=== PATIENT | female | born 1990 | race Caucasian/White ===

== ENCOUNTER 2017-06-11 17:56 | Inpatient (IN) ==
--- NOTE | 2017-06-11 18:44 | Emergency Department Note ---
Disposition Clinical Impression: Dehydration, Hyponatremia Pancreatitis Qualifiers: Chronicity: acute Pancreatitis type: other Acute pancreatitis complication: unspecified Qualified Code(s): K85.80 - Other acute pancreatitis without necrosis or infection Disposition: Admitted As Inpatient Condition: Fair Referrals: NONE,PCP [Primary Care Provider] - Forms: ED Satisfaction Letter, Work/School Release Time of Disposition: 20:57 Abdominal Pain HPI - General Chief Complaint: ED Abdominal Pain Stated Complaint: My back/Stomach hurt Time Seen by Provider: 06/11/17 18:18 Source: patient Nursing Notes Reviewed: Yes Vital Signs Reviewed: Yes - History of Present Illness HPI Narrative: She has generalized abdominal pain which started gradually 3 days ago and is constant and severe with radiation to the back. Has not had this pain in the past. She did use a Suboxone tablet one or 2 days ago. I did review her previous record with history of suicidality ideation, depression and substance abuse. She states the pain is constant and sharp and generalized. No fever, vomiting, diarrhea. She denies any blood in the urine or stool, dysuria or urinary frequency, vaginal bleeding or discharge. Social history: Smoker, no alcohol, no history of injection drug use. Is here with her boyfriend Pain Scale: 10 - Related Data Home Medications Medication Instructions Recorded Confirmed Abilify mg PO DAILY 06/11/17 Buspirone HCl [Buspar] 10 mg PO DAILY 06/11/17 06/11/17 HydrOXYzine Pamoate [Vistaril] 50 mg PO TID PRN 06/11/17 06/11/17 Venlafaxine HCl [Effexor Xr] 225 mg PO DAILY 06/11/17 06/11/17 Previous Rx's Medication Instructions Recorded TraZODone 50 mg PO HS PRN #30 tablet 11/06/15 Allergies Allergy/AdvReac Type Severity Reaction Status Date / Time diphenhydramine Allergy Hives Verified 11/03/15 18:23 [From Agnes] Review of Systems: As Per HPI Abdominal Pain PMH - Past Medical History Medical history: Reports: no medical history Female Surgical History: Reports: non-contributory CODER history: Reports: bilateral tubal ligation Psychiatric history: Reports: depression, previous psychiatric hospitalization - Social History Smoking status: Current every day smoker Alcohol use: Reports: occasionally Drug use: Reports: marijuana, prescription drug abuse Physical Exam CONSTITUTIONAL: Alert and oriented X3 although she does answer questions slowly and seems slightly lethargic, well-nourished, tired appearing, in no apparent distress HEAD: Normocephalic; atraumatic. EYES: PERRL, no scleral icterus. NOSE: The nose is normal in appearance without rhinorrhea RESP: Normal chest excursion with respiration; breath sounds clear and equal bilaterally; no wheezes, rhonchi, or rales CARD: Regular rhythm, without murmurs, rub or gallop ABD: Non-distended; moderate generalized discomfort palpation, normal appearance , the entire abdomen is soft,without rigidity, rebound or guarding SKIN: Normal for age and race; warm and dry; no apparent lesions - General Limitations: no limitations General appearance: alert, in no apparent distress Course Vital Signs Temperature 98.6 F 06/11/17 18:06 Pulse Rate 151 06/11/17 18:06 Respiratory Rate 18 06/11/17 18:06 Blood Pressure 119/87 06/11/17 18:06 O2 Sat by Pulse Oximetry 91 06/11/17 18:06 Temperature 98.6 F 06/11/17 18:06 Pulse Rate 116 06/11/17 20:59 Respiratory Rate 18 06/11/17 20:59 Blood Pressure 109/84 06/11/17 20:59 O2 Sat by Pulse Oximetry 98 06/11/17 20:59 Oxygen Delivery Oxygen Delivery Room Air Abdominal Pain - MDM Narrative Medical decision making narrative: Patient does have significant tachycardia will receive 2 L IV fluid bolus, labs including LFTs and lipase, urine toxicology screen, serum toxicology screen, abdominal pelvic CT scan with IV contrast. Results are pending. 1843 Case is discussed with the hospitalist who accepted the patient for admission. CT scan results are reviewed showing duodenitis or pancreatitis but with the elevated lipase and the patient's significant pain and pancreatitis more likely etiology. Patient did receive IV fluids. Is being admitted to the hospital. Urine does have many squamous cells and does seem to represent contaminant. 2054 Vital signs will be repeated, mild hyponatremia - Medical Records Medical records reviewed: Yes I reviewed the patient's medical records. - Lab Data Lab results reviewed: Yes I reviewed the patient's lab results. Result diagrams: 06/11/17 18:52 06/11/17 18:52 Lab Results 06/11/17 06/11/1718 Range/Units 18:52 18:52 18:52 WBC 18.3 H (4.3-11.1) K/mcL RBC 5.17 H (3.82-4.97) M/mcL Hgb 15.6 H (11.5-15.4) g/dL Hct 46.7 H (35.3-44.9) % MCV 90.3 (83.0-100.0) fL MCH 30.2 (28.0-33.3) pg MCHC 33.4 (31.6-35.5) g/dL RDW 13.4 (11.5-14.5) % Plt Count 428 H (140-400) K/mcL MPV 9.0 L (9.4-12.4) fL Sodium 128 L (136-145) mEq/L Potassium 4.0 (3.5-5.1) mEq/L Chloride 97 L (98-107) mEq/L Carbon Dioxide 25 (23-29) mEq/L BUN 15 (6-20) mg/dL Creatinine 0.67 (0.60-1.20) mg/dL Est GFR ( Amer) > 60 (> 60) Est GFR (Non-Af Amer) > 60 (> 60) BUN/Creatinine Ratio 22 (6-26) Glucose 118 H (70-105) mg/dL Calculated Osmolality 268 L (280-300) Lactic Acid (0.5-2.2) mmol/L Calcium 8.5 L (8.6-10.3) mg/dL Total Bilirubin 0.7 (0.3-1.0) mg/dL Direct Bilirubin 0.1 (0.0-0.2) mg/dL Indirect Bilirubin 0.6 (0.0-1.2) mg/dL AST 72 H (13-39) Units/L ALT 168 H (7-52) Units/L Alkaline Phosphatase 87 (34-104) Units/L Serum Total Protein 7.1 (6.4-8.9) g/dL Albumin 3.8 (3.5-5.7) g/dL Globulin 3.3 (2.4-3.5) g/dL Albumin/Globulin Ratio 1.2 (1.1-2.2) Lipase 424 H (11-82) Units/L Urine Color (Yellow) Urine Clarity (Clear) Urine pH (5.0-8.0) pH Units Ur Specific [place] (1.010-1.025) Urine Protein (Neg-Trace) mg/dL Urine Glucose (UA) (Normal) mg/dL Urine Ketones (Negative) mg/dL Urine Blood (Negative) Urine Nitrite (Negative) Urine Bilirubin (Negative) Urine Urobilinogen (Normal) mg/dL Ur Leukocyte Esterase (Negative) Urine Microscopic RBC (0-3) per hpf Urine Microscopic WBC (0-3) per hpf Ur Squamous Epith Cells (None-Few) per lpf Urine Bacteria (None-Few) per hpf Hyaline Casts (None-Few) per lpf Urine Test (Negative) Salicylates < 5.0 L (15.0-30.0) mg/dL Urine Opiates Screen (Fvrvfo=829) ng/mL Acetaminophen < 1.0 L (10-30) mcg/mL Ur Barbiturates Screen (Vgnpvx=050) ng/mL Ur Phencyclidine Scrn (Cutoff=25) ng/mL Ur Amphetamines Screen (Kvzrgz=3436) ng/mL U Benzodiazepines Scrn (Edjpzy=665) ng/mL Urine Cocaine Screen (Cutoff= 300) ng/mL U Marijuana (THC) Screen (Cutoff = 50) ng/mL Ethyl Alcohol < 10 (0-10) mg/dL 06/11/17 06/11/17 06/11/17 Range/Units 18:52 18:56 18:56 WBC (4.3-11.1) K/mcL RBC (3.82-4.97) M/mcL Hgb (11.5-15.4) g/dL Hct (35.3-44.9) % MCV (83.0-100.0) fL MCH (28.0-33.3) pg MCHC (31.6-35.5) g/dL RDW (11.5-14.5) % Plt Count (140-400) K/mcL MPV (9.4-12.4) fL Sodium (136-145) mEq/L Potassium (3.5-5.1) mEq/L Chloride (98-107) mEq/L Carbon Dioxide (23-29) mEq/L BUN (6-20) mg/dL Creatinine (0.60-1.20) mg/dL Est GFR ( Amer) (> 60) Est GFR (Non-Af Amer) (> 60) BUN/Creatinine Ratio (6-26) Glucose (70-105) mg/dL Calculated Osmolality (280-300) Lactic Acid 1.0 (0.5-2.2) mmol/L Calcium (8.6-10.3) mg/dL Total Bilirubin (0.3-1.0) mg/dL Direct Bilirubin (0.0-0.2) mg/dL Indirect Bilirubin (0.0-1.2) mg/dL AST (13-39) Units/L ALT (7-52) Units/L Alkaline Phosphatase (34-104) Units/L Serum Total Protein (6.4-8.9) g/dL Albumin (3.5-5.7) g/dL Globulin (2.4-3.5) g/dL Albumin/Globulin Ratio (1.1-2.2) Lipase (11-82) Units/L Urine Color Dark Yellow (Yellow) Urine Clarity Cloudy A (Clear) Urine pH 6.5 (5.0-8.0) pH Units Ur Specific [place] > 1.030 H (1.010-1.025) Urine Protein 100 H (Neg-Trace) mg/dL Urine Glucose (UA) Normal (Normal) mg/dL Urine Ketones Negative (Negative) mg/dL Urine Blood Trace H (Negative) Urine Nitrite Positive A (Negative) Urine Bilirubin Small H (Negative) Urine Urobilinogen Normal (Normal) mg/dL Ur Leukocyte Esterase Negative (Negative) Urine Microscopic RBC 0-3 (0-3) per hpf Urine Microscopic WBC 5-15 H (0-3) per hpf Ur Squamous Epith Cells Many H (None-Few) per lpf Urine Bacteria Few (None-Few) per hpf Hyaline Casts None Seen (None-Few) per lpf Urine Test Negative (Negative) Salicylates (15.0-30.0) mg/dL Urine Opiates Screen (Bvjhba=845) ng/mL Acetaminophen (10-30) mcg/mL Ur Barbiturates Screen (Sxisrl=922) ng/mL Ur Phencyclidine Scrn (Cutoff=25) ng/mL Ur Amphetamines Screen (Uutzil=7901) ng/mL U Benzodiazepines Scrn (Ragody=714) ng/mL Urine Cocaine Screen (Cutoff= 300) ng/mL U Marijuana (THC) Screen (Cutoff = 50) ng/mL Ethyl Alcohol (0-10) mg/dL 06/11/17 Range/Units 18:56 WBC (4.3-11.1) K/mcL RBC (3.82-4.97) M/mcL Hgb (11.5-15.4) g/dL Hct (35.3-44.9) % MCV (83.0-100.0) fL MCH (28.0-33.3) pg MCHC (31.6-35.5) g/dL RDW (11.5-14.5) % Plt Count (140-400) K/mcL MPV (9.4-12.4) fL Sodium (136-145) mEq/L Potassium (3.5-5.1) mEq/L Chloride (98-107) mEq/L Carbon Dioxide (23-29) mEq/L BUN (6-20) mg/dL Creatinine (0.60-1.20) mg/dL Est GFR ( Amer) (> 60) Est GFR (Non-Af Amer) (> 60) BUN/Creatinine Ratio (6-26) Glucose (70-105) mg/dL Calculated Osmolality (280-300) Lactic Acid (0.5-2.2) mmol/L Calcium (8.6-10.3) mg/dL Total Bilirubin (0.3-1.0) mg/dL Direct Bilirubin (0.0-0.2) mg/dL Indirect Bilirubin (0.0-1.2) mg/dL AST (13-39) Units/L ALT (7-52) Units/L Alkaline Phosphatase (34-104) Units/L Serum Total Protein (6.4-8.9) g/dL Albumin (3.5-5.7) g/dL Globulin (2.4-3.5) g/dL Albumin/Globulin Ratio (1.1-2.2) Lipase (11-82) Units/L Urine Color (Yellow) Urine Clarity (Clear) Urine pH (5.0-8.0) pH Units Ur Specific [place] (1.010-1.025) Urine Protein (Neg-Trace) mg/dL Urine Glucose (UA) (Normal) mg/dL Urine Ketones (Negative) mg/dL Urine Blood (Negative) Urine Nitrite (Negative) Urine Bilirubin (Negative) Urine Urobilinogen (Normal) mg/dL Ur Leukocyte Esterase (Negative) Urine Microscopic RBC (0-3) per hpf Urine Microscopic WBC (0-3) per hpf Ur Squamous Epith Cells (None-Few) per lpf Urine Bacteria (None-Few) per hpf Hyaline Casts (None-Few) per lpf Urine Test (Negative) Salicylates (15.0-30.0) mg/dL Urine Opiates Screen Negative (Wbxibe=754) ng/mL Acetaminophen (10-30) mcg/mL Ur Barbiturates Screen Negative (Wcfyif=615) ng/mL Ur Phencyclidine Scrn Negative (Cutoff=25) ng/mL Ur Amphetamines Screen Negative (Kxrbzv=2775) ng/mL U Benzodiazepines Scrn Negative (Uxfyrx=283) ng/mL Urine Cocaine Screen Negative (Cutoff= 300) ng/mL U Marijuana (THC) Screen Positive H (Cutoff = 50) ng/mL Ethyl Alcohol (0-10) mg/dL - Radiology Data Radiology results reviewed: Yes I reviewed the patient's radiology results. Abdomen/Pelvis CT 06/11/17 18:38 IMPRESSION: 1. Extensive inflammatory changes, which appear to be centered within the anterior pararenal space. The most likely etiology of that is duodenitis involving the 2nd and 3rd portions of the duodenum. Definite ulceration is not identified, but would be difficult to exclude with CT technique. 2. The other differential consideration is uncomplicated pancreatitis, though that is considered somewhat less likely in this case. Correlation with laboratory values would be helpful. 3. Mild fluid-filled dilation of small bowel in the left mid upper abdomen, which is likely reactive ileus. D/ / Emir Langston MD / Emir Langston MD Interpreting Provider: Emir Langston MD Critical Care Time Critical Care Time: Yes Total Critical Care Time: 30 Attestation: 30 minutes of critical. Was felt the patient with significant tachycardia, hypoxemia, severe abdominal pain, acute pancreatitis and hyponatremia and this included IV fluids, laboratory evaluation interpretation, CT interpretation, discussion with hospitalist, reassessing the patient
[2017-06-11 19:04] LABS: Hematocrit 46.7 % (35.3-44.9); Hemoglobin 15.6 g/dL (11.5-15.4); Mean Corpuscular HGB Conc 33.4 g/dL (31.6-35.5); Mean Corpuscular Hemoglobin 30.2 pg (28.0-33.3); Mean Corpuscular Volume 90.3 fL (83.0-100.0); Platelet Count 428 K/mcL (140-400); Red Blood Count 5.17 M/mcL (3.82-4.97); Red Cell Distribution Width 13.4 % (11.5-14.5)
[2017-06-11 19:12] LABS: Bilirubin,Urine Small (Negative); Blood,Urine Trace (Negative); Clarity,Urine Cloudy (Clear); Color,Urine Dark Yellow (Yellow); Glucose,Urine (UA) Normal (Normal); Ketones,Urine Negative (Negative); Leukocyte Esterase,Urine Negative (Negative); Nitrite,Urine Positive (Negative); PH,Urine 6.5 pH Units (5.0-8.0); Protein,Urine 100 mg/dL (Neg-Trace); Specific Gravity,Urine > 1.030 (1.010-1.025); Urobilinogen,Urine Normal (Normal)
[2017-06-11 19:15] LABS: Amphetamine Screen,Urine Negative ng/mL (Cutoff=1000); Bacteria,Urine Few per hpf (None-Few); Barbiturate Screen,Urine Negative ng/mL (Cutoff=200); Benzodiazepines Screen,Urine Negative ng/mL (Cutoff=200); Cannabinoid Screen,Urine Positive ng/mL (Cutoff = 50); Cocaine Screen,Urine Negative ng/mL (Cutoff= 300); Hyaline Casts,Urine None Seen per lpf (None-Few); Opiate Screen,Urine Negative ng/mL (Cutoff=300); Phencyclidine Screen,Urine Negative ng/mL (Cutoff=25); Squamous Epithelial Cell,Urine Many per lpf (None-Few)
[2017-06-11 19:17] LABS: Acetaminophen < 1.0 mcg/mL (10-30); Ethanol < 10 mg/dL (0-10); Salicylate < 5.0 mg/dL (15.0-30.0)
[2017-06-11 19:18] LABS: Alanine Aminotransferase 168 Units/L (7-52); Albumin 3.8 g/dL (3.5-5.7); Albumin/Globulin Ratio 1.2 (1.1-2.2); Alkaline Phosphatase 87 Units/L (34-104); Aspartate Amino Transferase 72 Units/L (13-39); Bilirubin,Direct 0.1 mg/dL (0.0-0.2); Bilirubin,Indirect 0.6 mg/dL (0.0-1.2); Bilirubin,Total 0.7 mg/dL (0.3-1.0); Globulin 3.3 g/dL (2.4-3.5); Lipase 424 Units/L (11-82); Total Protein 7.1 g/dL (6.4-8.9)
[2017-06-11 19:19] LABS: BUN/Creatinine Ratio 22 (6-26); Blood Urea Nitrogen 15 mg/dL (6-20); Calcium 8.5 mg/dL (8.6-10.3); Carbon Dioxide 25 mEq/L (23-29); Chloride 97 mEq/L (98-107); Glucose 118 mg/dL (70-105); Osmolality,Calculated 268 (280-300); Sodium 128 mEq/L (136-145); eGFR For African Americans > 60 (> 60); eGFR For Non-African Americans > 60 (> 60)
[2017-06-11] MEDS: 0.9 % Sodium Chloride 1,000 ML IVC SCH (19:22)
[2017-06-11 19:28] LABS: RBC,Urine 0-3 per hpf (0-3)
[2017-06-11] MEDS ORDERED: Ondansetron 4 MG/2 ML VIAL IVP ONE (20:22)
[2017-06-11] MEDS ORDERED: *HR* HYDROmorphone (PF) 1 MG/ML SYRINGE IVP ONE (20:22)
[2017-06-11] MEDS ORDERED: Acetaminophen 325 MG TABLET PO PRN (21:48)
[2017-06-11] MEDS ORDERED: Ondansetron 4 MG/2 ML VIAL IVP PRN (21:48)
[2017-06-11] MEDS ORDERED: Naloxone 0.4 MG/ML INJ IVP PRN (21:48)
[2017-06-11] MEDS ORDERED: hydrOXYzine pamoate 25 MG CAPSULE PO PRN (21:54)
[2017-06-11] MEDS ORDERED: traZODone 50 MG TABLET PO PRN (21:54)
[2017-06-11] MEDS ORDERED: Venlafaxine XR (24 HR) 75 MG CAP.ER.24H PO SCH (22:00)
--- NOTE | 2017-06-11 22:10 | Internal Med History&Physical ---
<Truman Lopez - Last Filed: 06/12/17 00:00> Date of Encounter: 06/12/17 Time of Encounter: 21:45 Assessment and Plan (1) Periumbilical abdominal pain Current visit: Yes Status: Acute suspect multifaceted etiology including pancreas, duodenitis, and possibly secondary to biliary obstruction CT shows duodenitis and lab demonstrates elevated Lipase; RUQ U/S pending NPO IV Protonix Drip Due to leukocytosis, will obtain BCx2 and start IV abx -- will cover for enteric opportunism with Cipro and Flagyl Will obtain GI consult for possible EGD IVF - NS at 125mL/hr Pain Rx PRN Zofran PRN nausea/vomiting (2) Pancreatitis Current visit: Yes Status: Acute Lipase 424 Suspect reactivity to duodenitis vs gallstone etiology Plan as above Qualifiers: Chronicity: acute Pancreatitis type: unspecified pancreatitis type Acute pancreatitis complication: unspecified Qualified Code(s): K85.90 - Acute pancreatitis without necrosis or infection, unspecified (3) Duodenitis Current visit: Yes Status: Acute As per CT; plan as above (4) Hyponatremia Current visit: Yes Status: Acute Low osmo; likely secondary to volume loss due to vomiting will recheck in AM (5) UTI (urinary tract infection) Current visit: Yes Status: Acute Urine culture pending Cipro as above Qualifiers: Urinary tract infection type: site unspecified Hematuria presence: without hematuria Qualified Code(s): N39.0 - Urinary tract infection, site not specified (6) Anxiety Current visit: No Status: Chronic Currently holding home Rx (7) DVT prophylaxis Current visit: Yes Status: Acute SCDs and ambulate in conroes Internal Medicine - H&P: HPI Chief complaint: abdominal pain Admitted From: Home Plans for Post Hospital Care: Home History of present illness: Ms. Bird is a 26 year old female with no notable medical history being admitted by ED for abdominal pain for suspected pancreatitis. Per patient, has had abdominal pain, nausea, and vomiting for the last 3 days. Patient states laid down in the early afternoon 3 days ago and woke up severely nauseous with repeated episodes vomiting and concurrent severe luna-umbilical abdominal pain. No blood or coffee ground quality to the vomitus. Periumbilical pain is sharp and constant in quality without any known palliative of provoking factors. No worsening of pain with meals, Pain does not radiate and has not been migratory. Patient denies any other symptoms including fever, chills, sweats, chest pain, trouble breathing, palpitations, diarrhea, constipation, blood in stools, melanotic stools, hematuria, dysuria, or abnormal vaginal discharge. Patient denies any similar episodes in the past. Patient denies use of alcohol, however does smoke marijuana. Denies any history of intra- abdominal problems or previous abdominal surgeries. Emergency department workup was significant for tomorrow night is as demonstrated on CT, elevated white blood cell count 18,000, elevated lipase at 424, mild transaminases, mild hyponatremia, UDS positive for cannabinoids, and UA which may be suggestive of urinary tract infection. Past Med Surg Social Fam HX - Past Medical History Attestation: Yes The following information was validated with the patient. Medical history: no medical history Psychiatric history: depression, previous psychiatric hospitalization - Past Surgical History Surgical History: other - Social History Smoking Status: Current every day smoker Smokeless Tobacco Status: No Alcohol use: occasionally Drug use: marijuana, prescription drug abuse Internal Medicine - H&P: Meds TraZODone 50 mg PO HS PRN #30 tablet 11/06/15 [Rx] Abilify mg PO DAILY 06/11/17 [History] Buspirone HCl [Buspar] 10 mg PO DAILY 06/11/17 [History] HydrOXYzine Pamoate [Vistaril] 50 mg PO TID PRN 06/11/17 [History] Venlafaxine HCl [Effexor Xr] 225 mg PO DAILY 06/11/17 [History] 3 Allergy/AdvReac Type Severity Reaction Status Date / Time diphenhydramine Allergy Hives Verified 11/03/15 18:23 [From Benadryl] All Systems PM: A 10-system review of systems was performed and is negative for pertinent findings except as documented above in the HPI. Review of systems: As per HPI - Constitutional Vitals: Temp Pulse Resp BP Pulse Ox 98.6 F 116 18 110/84 98 06/11/17 18:06 06/11/17 20:59 06/11/17 22:02 06/11/17 22:02 06/11/17 20:59 Exam: CONSTITUTIONAL: Alert and oriented X3, well-nourished, well appearing, in no apparent distress HEAD: Normocephalic; atraumatic. EYES: PERRL, no scleral icterus, no drainage, no conjunctival injection Oropharynx: pink/moist, no tonsillar edema/erythema/exudates RESP: NRD without use of accessory musculature, CTA b/l with no wheezes/rales/ rhonchi CARD: Regular rhythm, without murmurs, rubs, or gallop ABD: bowel sounds quite an infrequent but present; abdomen grossly normal, guarding/tenderness to periumbilical and midline lower abdominal region, no distention or rebound SKIN: normal appearance, no pallor/diaphoresis,mottling,jaundice,cyanosis EXT: DP/Rad pulses 2+ and symmetrical; no edema; no other lesions seen PSYCH: appropriate mood/affect Internal Med - H&P Results - Labs CBC & Chem 7: 06/11/17 18:52 06/11/17 18:52 <Aram Mccoy - Last Filed: 06/12/17 03:00> Date of Encounter: 06/12/17 Time of Encounter: 01:00 Past Med Surg Social Fam HX - Past Medical History Attestation: Yes The following information was validated with the patient. Source: patient, obtained from family Medical history: no medical history - Past Surgical History Surgical History: other (tubal ligation) - Additional Family History Additional family history: FH negative for GB disease/stones - Constitutional Constitutional: no chills, no fever(s), no night sweats - EENT Eyes: no blurry vision, no change in vision Ears: no tinnitus Nose, mouth and throat: no sinus pressure, no sore throat - Cardiovascular Cardiovascular ROS IM: no chest pain, no dyspnea, no dyspnea on exertion, no edema - Respiratory Respiratory: no cough, no hemoptysis, no chest congestion, no excessive phlegm production, no change in phlegm color - Gastrointestinal Gastrointestinal: abdominal pain, nausea, no diarrhea, no heartburn, no hematemesis, no hematochezia, no melena, no vomiting - Genitourinary Genitourinary: no dysuria, no flank pain, no hematuria - Musculoskeletal Musculoskeletal ROS IM: no arthralgias, no back pain - Integumentary Integumentary IM: no rash, no jaundice - Neurological Neurological ROS: no dizziness, no focal weakness, no frequent falls, no headache(s) - Psychiatric Psychiatric: anxiety, depression, no homicidal ideation, no suicidal ideation - Endocrine Endocrine IM: no polydipsia, no polyuria - Hematologic/Lymphatic Hematologic/Lymphatic: no easy bruising, no lymphadenopathy - Allergic/Immunologic Allergic/Immunologic: GI upset with certain foods, no wheezing - Constitutional Vitals: Temp Pulse Resp BP Pulse Ox 97.8 F 123 14 119/80 97 06/12/17 00:54 06/12/17 00:54 06/12/17 00:54 06/12/17 00:54 06/12/17 00:54 General appearance: Present: cooperative, mild distress (due to epigastric pain) , A&O X 3, pleasant, answers questions appropriately - Eye Eye exam: Present: PERRL. Absent: scleral icterus - ENT ENT exam: Present: mucous membranes dry, normal exam - Neck Neck exam general surgery: Present: supple. Absent: lymphadenopathy, tenderness - Respiratory Respiratory exam: Present: CTAB. Absent: rales, rhonchi, wheezes - Cardiovascular Cardiovascular exam: Present: RRR, +S1, +S2. Absent: systolic murmur - GI/Abdominal GI/Abdominal exam: Present: diminished bowel sounds, soft, tenderness ( epigastric), no peritoneal signs. Absent: guarding, hepatomegaly, mass, rebound , splenomegaly - Extremities Exam Extremities exam: Present: warm, radial pulses palpable and symmetrical. Absent : calf tenderness - Back Exam Back exam: Absent: CVA tenderness (L), CVA tenderness (R) - Neurological Exam Neurological exam: Present: alert, oriented X3, no focal deficits - Psychiatric Psychiatric exam: Present: flat affect - Skin Skin exam: Present: dry, warm. Absent: rash Internal Med - H&P Results - Labs CBC & Chem 7: 06/11/17 18:52 06/11/17 18:52 - Diagnostic Studies CT scan - abdomen Additional comments: Report reviewed: Concern for duodenitis - Attending Attestation I discussed the patient JACKSON, PMH, ROS, lab data, and exam findings with Dr. Lopez. I then saw and examined patient independently as well. I met with patient and her mother, who is very anxious and nervous about the patient's condition. Presently, patient has some mild epigastric pain. She denies any GERD like symptoms or prior h/o of gastritis/ulcers. There is no FH GB disease , but I'm concerned she may have gallbladder disease given her colicky pain she is experiencing when I visit with her. Given her findings of duodenitis, I recommend Protonix drip, IV antibiotics to cover GI carmen, IVF, npo, and pain control. I agree with GI consults and RUQ ultrasound. I discussed my plan at length with mother and patient, and both were in agreement. Other than my comments above and noted exam findings, I agree with Dr. Lopez's assessment and plan.
[2017-06-11] MEDS ORDERED: Pantoprazole 40 MG in 0.9 % Sodium Chloride Mini Bag 100 ML IVC SCH (23:00)
[2017-06-12] MEDS: *HR* Morphine 2 MG/ML SYRINGE IVP PRN ×2 (00:23→04:14)
[2017-06-12] MEDS: MetroNIDAZOLE 500 MG/100 ML 500 MG/100 ML BAG IVPB SCH ×5 (00:25→23:42)
[2017-06-12] MEDS: 0.9 % Sodium Chloride 1,000 ML IVC SCH ×4 (00:25→23:39)
[2017-06-12] MEDS: Nicotine 14 MG PATCH.TD24 TD SCH ×2 (02:06→08:20)
[2017-06-12 04:27] LABS: Basophils % 0.2 %; Eosinophils % 0.3 %; Hematocrit 37.4 % (35.3-44.9); Immature Granulocytes % 0.6 % (0-4); Lymphocytes # 2.2 K/mcL (0.6-4.6); Lymphocytes % 13.8 %; Mean Corpuscular HGB Conc 33.2 g/dL (31.6-35.5); Mean Corpuscular Hemoglobin 30.7 pg (28.0-33.3); Mean Corpuscular Volume 92.6 fL (83.0-100.0); Mean Platelet Volume 8.7 fL (9.4-12.4); Monocytes # 1.4 K/mcL (0.0-1.3); Monocytes % 8.6 %; Neutrophils # 12.2 K/mcL (1.6-8.9); Platelet Count 322 K/mcL (140-400); Red Blood Count 4.04 M/mcL (3.82-4.97); Red Cell Distribution Width 13.6 % (11.5-14.5); Segmented Neutrophils % 76.5 %
[2017-06-12 04:36] LABS: Hemoglobin 12.4 g/dL (11.5-15.4)
[2017-06-12 04:43] LABS: Chol/HDL Ratio 1.8 (0-4.9)
[2017-06-12 04:45] LABS: Alanine Aminotransferase 115 Units/L (7-52); Albumin 3.1 g/dL (3.5-5.7); Albumin/Globulin Ratio 1.2 (1.1-2.2); Alkaline Phosphatase 65 Units/L (34-104); Aspartate Amino Transferase 50 Units/L (13-39); BUN/Creatinine Ratio 19 (6-26); Bilirubin,Direct 0.2 mg/dL (0.0-0.2); Bilirubin,Indirect 0.4 mg/dL (0.0-1.2); Bilirubin,Total 0.6 mg/dL (0.3-1.0); Blood Urea Nitrogen 10 mg/dL (6-20); Calcium 7.4 mg/dL (8.6-10.3); Carbon Dioxide 24 mEq/L (23-29); Chloride 105 mEq/L (98-107); Globulin 2.5 g/dL (2.4-3.5); Glucose 105 mg/dL (70-105); Lipase 222 Units/L (11-82); Osmolality,Calculated 273 (280-300); Potassium 3.8 mEq/L (3.5-5.1); Sodium 132 mEq/L (136-145); Total Protein 5.6 g/dL (6.4-8.9); eGFR For African Americans > 60 (> 60); eGFR For Non-African Americans > 60 (> 60)
[2017-06-12] MEDS ORDERED: *HR* Heparin 5,000 UNIT/ML VIAL SQ SCH (06:00)
[2017-06-12] MEDS ORDERED: Pantoprazole 40 MG VIAL IVP SCH (06:00)
--- NOTE | 2017-06-12 10:11 | General Surgery Consult Note ---
<Rose Tinoco - Last Filed: 06/12/17 15:57> Date of Encounter: 06/12/17 Time of Encounter: 10:11 Assessment and Plan (1) Pancreatitis Current Visit: Yes Status: Acute Symptoms consistent with pancreatitis, presence of fluid collections on CT and elevation in pancreatic enzymes concerning for pancreatitis Pt remains afebrile, hemodynamically stable Reviewed CT and labs with attending Dr. Villa Estimated [place]'s Criteria on Admission: 1 (WBC > 16k). 48-hr Cumulative [place]'s Criteria: 3 (+ >10% droop in Hct, Ca< 8 mg/dL). BISAP Score 0. -Recommend supportive care with fluid resuscitation, pain control, plan for cautious advancement of diet - Pt to remain NPO Overnight. May have ice chips to wet mouth - Continue Antibiotics - Pain management: Ofirmev 1000 mg q6 while NPO and only if pain not alleviated by ofirmev, may resort to Toradol 15 mg q6 PRN if necessary - CBC, BMP in AM. Replete electrolytes prn - Appreciate additional recs by GI Qualifiers: Chronicity: acute Pancreatitis type: unspecified pancreatitis type Acute pancreatitis complication: unspecified Qualified Code(s): K85.90 - Acute pancreatitis without necrosis or infection, unspecified (2) Duodenitis Current Visit: Yes Status: Acute Plan, as above. Duodenitis demontrated on CT, possibly 2/2 to pancreatitis. (3) Hyponatremia Current Visit: Yes Status: Acute Asymptomatic. Management, per primary team. Na 132. Recommend serial BMPs for close monitoring. (4) MDD (major depressive disorder), recurrent episode, severe Current Visit: No Status: Acute Denies SI/HI to resident MD on evaluation. Management per primary team. Qualifiers: Psychotic features: without psychotic features Qualified Code(s): F33.2 - Major depressive disorder, recurrent severe without psychotic features (5) Anxiety Current Visit: No Status: Chronic Management per primary team. (6) DVT prophylaxis Current Visit: Yes Status: Acute Management per primary team. History of Present Illness Consult date: 06/12/17 Reason for consult: abdominal pain Requesting physician: Erwin Lamb History of present illness: Ms. Bird is a 26 year old female with no significant medical history who was admitted to ED for luna-umbilical abdominal pain. Quality: sharp and constant in quality. Radiation: Abdominal pain radiates to back. Associated symptoms: Pain began 3 days prior to to presentation when she woke up severely nauseous with repeated episodes of NBNB emesis. She endorses ingestion of illcit suboxone for the first time with concomitant marijuana use the day prior to the abdominal pain. Endorses constipation. Endorses hematuria, but is unaware on onset in relation to abdominal pain. Unaware of last 1st date LMP. No worsening of pain with meals. No relief of pain with change in position. Patient denies the following symptoms including fever, chills, sweats, chest pain, trouble breathing, palpitations, diarrhea. Patient denies any similar episodes in the past. Patient denies use of alcohol, however does smoke marijuana. Surgical history includes a tubal ligation 2 years prior to this visit. ED lab results was significant for elevated white blood cell count 18,000, elevated lipase at 424, mild transaminases, mild hyponatremia, UDS positive for cannabinoids. test was negative. Past Med Surg Social Fam HX - Past Medical History Source: patient Medical history: no medical history Psychiatric history: depression, previous psychiatric hospitalization - Past Surgical History Surgical History: other (tubal ligation) - Social History Smoking Status: Current every day smoker Packs per day: 1/2 Smokeless Tobacco Status: No Alcohol use: occasionally Drug use: marijuana, prescription drug abuse Medications and Allergies TraZODone 50 mg PO HS PRN #30 tablet 11/06/15 [Rx] Abilify mg PO DAILY 06/11/17 [History] Buspirone HCl [Buspar] 10 mg PO DAILY 06/11/17 [History] HydrOXYzine Pamoate [Vistaril] 50 mg PO TID PRN 06/11/17 [History] Venlafaxine HCl [Effexor Xr] 225 mg PO DAILY 06/11/17 [History] 3 Allergy/AdvReac Type Severity Reaction Status Date / Time diphenhydramine Allergy Hives Verified 11/03/15 18:23 [From Benadryl] Review of Systems All systems PM: A 10-system review of systems was performed and is negative for pertinent findings except as documented above in the HPI. - Constitutional as per HPI General Surgery Exam Initial Vital Signs Temp Pulse Resp BP Pulse Ox 98.6 F 151 18 119/87 91 06/11/17 18:06 06/11/17 18:06 06/11/17 18:06 06/11/17 18:06 06/11/17 18:06 - General physical appearance moderate distress, moderate pain - Eyes pinpoint pupil, normal ocular movement - Respiratory normal expansion, normal respiratory effort, clear to auscultation - Cardiovascular Cardiovascular exam: Present: tachycardia, no murmurs/rubs/gallops. Absent: irregular rhythm - Abdomen Abdomen general surgery: Present: bowel sounds present, soft, tender. Absent: guarding, rebound Abdominal Tenderness: Present: diffusely Exam Initial Vital Signs Temp Pulse Resp BP Pulse Ox 98.6 F 151 18 119/87 91 06/11/17 18:06 06/11/17 18:06 06/11/17 18:06 06/11/17 18:06 06/11/17 18:06 Results - Labs 06/12/17 04:10 06/12/17 04:10 Abnormal lab results WBC 16.0 K/mcL (4.3-11.1) H 06/12/17 04:10 MPV 8.7 fL (9.4-12.4) L 06/12/17 04:10 Neutrophils # 12.2 K/mcL (1.6-8.9) H 06/12/17 04:10 Monocytes # 1.4 K/mcL (0.0-1.3) H 06/12/17 04:10 Sodium 132 mEq/L (136-145) L 06/12/17 04:10 Creatinine 0.52 mg/dL (0.60-1.20) L 06/12/17 04:10 POC Glucose 109 (58-89) H 06/12/17 05:44 Calculated Osmolality 273 (280-300) L 06/12/17 04:10 Calcium 7.4 mg/dL (8.6-10.3) L 06/12/17 04:10 AST 50 Units/L (13-39) H 06/12/17 04:10 ALT 115 Units/L (7-52) H 06/12/17 04:10 Serum Total Protein 5.6 g/dL (6.4-8.9) L 06/12/17 04:10 Albumin 3.1 g/dL (3.5-5.7) L 06/12/17 04:10 HDL Cholesterol 63 mg/dL (40-59) H 06/12/17 04:10 Lipase 222 Units/L (11-82) H 06/12/17 04:10 Urine Clarity Cloudy (Clear) A 06/11/17 18:56 Ur Specific Noble > 1.030 (1.010-1.025) H 06/11/17 18:56 Urine Protein 100 mg/dL (Neg-Trace) H 06/11/17 18:56 Urine Blood Trace (Negative) H 06/11/17 18:56 Urine Nitrite Positive (Negative) A 06/11/17 18:56 Urine Bilirubin Small (Negative) H 06/11/17 18:56 Urine Microscopic WBC 5-15 per hpf (0-3) H 06/11/17 18:56 Ur Squamous Epith Cells Many per lpf (None-Few) H 06/11/17 18:56 Salicylates < 5.0 mg/dL (15.0-30.0) L 06/11/17 18:52 Acetaminophen < 1.0 mcg/mL (10-30) L 06/11/17 18:52 U Marijuana (THC) Screen Positive ng/mL (Cutoff = 50) H 06/11/17 18:56 Diabetes panel 06/12/17 06/12/17 Range/Units 04:10 04:10 Sodium 132 L (136-145) mEq/L Potassium 3.8 (3.5-5.1) mEq/L Chloride 105 (98-107) mEq/L Carbon Dioxide 24 (23-29) mEq/L BUN 10 (6-20) mg/dL Creatinine 0.52 L (0.60-1.20) mg/dL Glucose 105 (70-105) mg/dL Calcium 7.4 L (8.6-10.3) mg/dL AST 50 H (13-39) Units/L ALT 115 H (7-52) Units/L Alkaline Phosphatase 65 (34-104) Units/L Albumin 3.1 L (3.5-5.7) g/dL Triglycerides 50 (< 150) mg/dL HDL Cholesterol 63 H (40-59) mg/dL Calcium panel 06/12/17 Range/Units 04:10 Calcium 7.4 L (8.6-10.3) mg/dL Albumin 3.1 L (3.5-5.7) g/dL Pituitary panel 06/12/17 Range/Units 04:10 Sodium 132 L (136-145) mEq/L Potassium 3.8 (3.5-5.1) mEq/L Chloride 105 (98-107) mEq/L Carbon Dioxide 24 (23-29) mEq/L BUN 10 (6-20) mg/dL Creatinine 0.52 L (0.60-1.20) mg/dL Glucose 105 (70-105) mg/dL Calcium 7.4 L (8.6-10.3) mg/dL Adrenal panel 06/12/17 Range/Units 04:10 Sodium 132 L (136-145) mEq/L Potassium 3.8 (3.5-5.1) mEq/L Chloride 105 (98-107) mEq/L Carbon Dioxide 24 (23-29) mEq/L BUN 10 (6-20) mg/dL Creatinine 0.52 L (0.60-1.20) mg/dL Glucose 105 (70-105) mg/dL Calcium 7.4 L (8.6-10.3) mg/dL Total Bilirubin 0.6 (0.3-1.0) mg/dL AST 50 H (13-39) Units/L ALT 115 H (7-52) Units/L Alkaline Phosphatase 65 (34-104) Units/L Albumin 3.1 L (3.5-5.7) g/dL All other labs normal. - Imaging CT scan - abdomen: report reviewed US - abdomen: report reviewed Additional studies: RIGHT UPPER QUADRANT ULTRASOUND 06/11/2017 11:03 pm COMPARISON: None. HISTORY: ORDERING SYSTEM PROVIDED HISTORY: upper abd pain FINDINGS: LIVER: The liver demonstrates normal echogenicity without evidence of intrahepatic biliary ductal dilatation. BILIARY SYSTEM: Wall echo shadow complex noted in the gallbladder which is stone filled. The gallbladder wall measures over 3 mm. Common bile duct is within normal limits measuring 7 mm. RIGHT KIDNEY: The right kidney is grossly unremarkable without evidence of hydronephrosis. PANCREAS: Incompletely visualized due to bowel gas. OTHER: No evidence of right upper quadrant ascites. US/US gall bladder IMPRESSION: Cholelithiasis and common bile duct obstruction. HIDA scan may be helpful for further characterization. D/ / oRd Landrum MD / Rod Landrum MD Interpreting Provider: Rod Landrum MD R #: [id number] CT/CT abd pelvis w iv no oral IMPRESSION: 1. Extensive inflammatory changes, which appear to be centered within the anterior pararenal space. The most likely etiology of that is duodenitis involving the 2nd and 3rd portions of the duodenum. Definite ulceration is not identified, but would be difficult to exclude with CT technique. 2. The other differential consideration is uncomplicated pancreatitis, though that is considered somewhat less likely in this case. Correlation with laboratory values would be helpful. 3. Mild fluid-filled dilation of small bowel in the left mid upper abdomen, which is likely reactive ileus. D/ / Emir Langston MD / Emir Langston MD Interpreting Provider: Emir Langston MD Consult Discharge Plan - Plan Referrals: NONE,PCP [Primary Care Provider] - (Patient prefers to find own primary care physician. Thank you) <Carter Villa M - Last Filed: 06/12/17 21:36> Date of Encounter: 06/12/17 Review of Systems All systems PM: A 10-system review of systems was performed and is negative for pertinent findings except as documented above in the HPI. General Surgery Exam Initial Vital Signs Temp Pulse Resp BP Pulse Ox 98.6 F 151 18 119/87 91 06/11/17 18:06 06/11/17 18:06 06/11/17 18:06 06/11/17 18:06 06/11/17 18:06 Exam Initial Vital Signs Temp Pulse Resp BP Pulse Ox 98.6 F 151 18 119/87 91 06/11/17 18:06 06/11/17 18:06 06/11/17 18:06 06/11/17 18:06 06/11/17 18:06 Results - Labs 06/12/17 04:10 06/12/17 04:10 Abnormal lab results WBC 16.0 K/mcL (4.3-11.1) H 06/12/17 04:10 MPV 8.7 fL (9.4-12.4) L 06/12/17 04:10 Neutrophils # 12.2 K/mcL (1.6-8.9) H 06/12/17 04:10 Monocytes # 1.4 K/mcL (0.0-1.3) H 06/12/17 04:10 ABG pCO2 33 mmHg (35-45) L 06/12/17 11:01 ABG pO2 72 mmHg (85-104) L 06/12/17 11:01 ABG Base Excess -3 mEq/L (-2 to 3) L 06/12/17 11:01 Sodium 132 mEq/L (136-145) L 06/12/17 04:10 Creatinine 0.52 mg/dL (0.60-1.20) L 06/12/17 04:10 Calculated Osmolality 273 (280-300) L 06/12/17 04:10 Calcium 7.4 mg/dL (8.6-10.3) L 06/12/17 04:10 AST 50 Units/L (13-39) H 06/12/17 04:10 ALT 115 Units/L (7-52) H 06/12/17 04:10 Serum Total Protein 5.6 g/dL (6.4-8.9) L 06/12/17 04:10 Albumin 3.1 g/dL (3.5-5.7) L 06/12/17 04:10 HDL Cholesterol 63 mg/dL (40-59) H 06/12/17 04:10 Lipase 222 Units/L (11-82) H 06/12/17 04:10 Urine Clarity Cloudy (Clear) A 06/11/17 18:56 Ur Specific Noble > 1.030 (1.010-1.025) H 06/11/17 18:56 Urine Protein 100 mg/dL (Neg-Trace) H 06/11/17 18:56 Urine Blood Trace (Negative) H 06/11/17 18:56 Urine Nitrite Positive (Negative) A 06/11/17 18:56 Urine Bilirubin Small (Negative) H 06/11/17 18:56 Urine Microscopic WBC 5-15 per hpf (0-3) H 06/11/17 18:56 Ur Squamous Epith Cells Many per lpf (None-Few) H 06/11/17 18:56 Salicylates < 5.0 mg/dL (15.0-30.0) L 06/11/17 18:52 Acetaminophen < 1.0 mcg/mL (10-30) L 06/11/17 18:52 U Marijuana (THC) Screen Positive ng/mL (Cutoff = 50) H 06/11/17 18:56 All other labs normal. - Attending Attestation I examined this patient and my medical decision-making was reviewed with the Resident Physician. I agree with the documented findings, disposition and treatment plan as described except to the extent set forth below. I reviewed the results of the assessment and evaluation with the resident and agree with the above. Noted epigastric/upper abdominal pain started today. Persistant pain. No hematemesis or rectal bleeding. Pain is currently less today. Pain to palpation noted in the upper abdomen. No masses. I reviewed the CT scan images, report, and laboratory studies. Evidence of duodenitis and pancreatitis with significant retroperitoneal fluid. The constellation of symptoms are likely consistent with significant pancreatitis. MRCP performed which did not show any evidence of CBD obstruction. No visualization of the pancreatic duct was noted. Lipase level 220 (was approx 400). I do not think it would be appropriate to remove the gallbladder at this time, given the significant degree of inflammation. There is a question of whether the duodenitis is due to the pancreatitis or if the patient may have had an ulcer that subsequently resulted in pancreatitis. Regardless, supportive measures are most important at this time. Agree with antibiotics. IVF hydration. Ice chips for now.
[2017-06-12 11:04] LABS: ABG Base Excess -3 mEq/L (-2 to 3); ABG HCO3 21 mEq/L (21-27); ABG Oxygen Saturation 95 % (95-98); ABG PCO2 33 mmHg (35-45); ABG PH 7.41 pH Units (7.32-7.45); ABG PO2 72 mmHg (85-104); ABG TCO2 22 mEq/L (20-26)
[2017-06-12] MEDS ORDERED: Ketorolac 30 MG/ML VIAL IVP PRN (11:44)
--- NOTE | 2017-06-12 12:26 | Gastroenterology Consult Note ---
<Fransisca nKight M - Last Filed: 06/12/17 12:23> Date of Encounter: 06/12/17 Time of Encounter: 09:10 - Assessment and plan (1) Pancreatitis Status: Acute Assessment and plan: CT abdomen shows pancreatitis and duodenitis. GB utrasound shows multiple stones. She had elevated lipase and LFTs on admission that are trending down. She may have CBD stone or has recently passed a stone. CBD is not dilated on ultrasound. Would continue IV fluids and consult surgery for possible cholecystectomy, if done she will need IOC and ERCP if stones are found. Will order MRCP. Qualifiers: Chronicity: acute Pancreatitis type: unspecified pancreatitis type Acute pancreatitis complication: unspecified Qualified Code(s): K85.90 - Acute pancreatitis without necrosis or infection, unspecified (2) Duodenitis Status: Acute Assessment and plan: Likely due to pancreatitis - Time Spent With Patient Total time spent is greater than 50% in coordination of care (as documented) at patient's floor/unit and/or counseling patient: GI History of Present Illness - Data of Consult Patient: new to practice Consult date: 06/12/17 Requesting Physician: Erwin Lamb - Consult Narrative Reason for consult: pancreatitis, duodenitis, possible CBD stones History of present illness: Ms. Bird is a 26 year old female with no significant medical history, but has a history of depression and psychiatric admissions in the past. She presented to ED for luna-umbilical abdominal pain which radiated to her back. She also complained of nausea and vomiting for 3 days prior to presentation. During exam pt is very lethargic, she awakens and starts to answer questions before drifting back off to sleep. Spoke with nursing staff who deny any recent pain medications. She did admit to surgeon that she took suboxone for the first time with concomitant marijuana use the day prior to the abdominal pain. She is not prescribed suboxone. She denied fever or chills, diarrhea, constipation or bloody stools. ED lab results was significant for elevated white blood cell count 18,000, elevated lipase at 424, mild transaminases, mild hyponatremia, UDS positive for cannabinoids. test was negative. Labs this morning were reviewed and LFTs, and lipase are trending down. Past Med Surg Social Fam HX - Past Medical History Medical history: no medical history Psychiatric history: depression, previous psychiatric hospitalization - Past Surgical History Surgical History: other (tubal ligation) - Social History Smoking Status: Current every day smoker Packs per day: 1/2 Smokeless Tobacco Status: No Alcohol use: occasionally Drug use: marijuana, prescription drug abuse ROS unobtainable: due to mental status - Constitutional Vitals: Temp Pulse Resp BP Pulse Ox 98.0 F 118 14 106/67 95 06/12/17 10:55 06/12/17 10:55 06/12/17 10:55 06/12/17 10:55 06/12/17 10:55 Exam: CONSTITUTIONAL:~lethargic, no acute distress.~HEAD:~normocephalic.~EYES:~no jaundice.~NECK:~no obvious swelling.~HEART:~regular rate and rhythm, no murmurs. ~LUNGS:~bilateral fair air exchange with crackles, RLL~ABDOMEN:~non distended, soft, tender, no masses palpable, no organomegaly.~RECTAL EXAM:~Deferred.~ EXTREMITIES:~no clubbing, cyanosis or edema.~SKIN:~no stigmata of chronic liver disease.~NEUROLOGIC:~lethargic.~~~~ Results - Labs CBC & Chem 7: 06/12/17 04:10 06/12/17 04:10 Labs: Last Result Calcium 7.4 mg/dL (8.6-10.3) L 06/12/17 04:10 Triglycerides 50 mg/dL (< 150) 06/12/17 04:10 Salicylates < 5.0 mg/dL (15.0-30.0) L 06/11/17 18:52 Urine Opiates Screen Negative ng/mL (Oartva=751) 06/11/17 18:56 Entire Visit Hgb 12.4 g/dL (11.5-15.4) D 06/12/17 04:10 Hct 37.4 % (35.3-44.9) 06/12/17 04:10 Total Bilirubin 0.6 mg/dL (0.3-1.0) 06/12/17 04:10 AST 50 Units/L (13-39) H 06/12/17 04:10 ALT 115 Units/L (7-52) H 06/12/17 04:10 Lipase 222 Units/L (11-82) H 06/12/17 04:10 Acetaminophen < 1.0 mcg/mL (10-30) L 06/11/17 18:52 - ABG ABG results: ABG ABG pH 7.41 pH Units (7.32-7.45) 06/12/17 11:01 ABG pCO2 33 mmHg (35-45) L 06/12/17 11:01 ABG pO2 72 mmHg (85-104) L 06/12/17 11:01 ABG O2 Saturation 95 % (95-98) 06/12/17 11:01 - Impressions Impressions Gallbladder Ultrasound 06/11/17 21:57 IMPRESSION: Cholelithiasis and common bile duct obstruction. HIDA scan may be helpful for further characterization. D/ / Rod Landrum MD / Rod Landrum MD Interpreting Provider: Rod Landrum MD Chest X-Ray 06/12/17 10:23 IMPRESSION: Right lower lobe airspace disease concerning for pneumonia. Radiographic follow-up recommended to assure resolution. D/ / 06/12/2017 11:39:05 George Talamantes MD / yee Interpreting Provider: George Talamantes MD Consult Discharge Plan - Plan Instructions: Pancreatitis (DC), Pancreatitis (GEN), Low Fat Diet (DC) Referrals: Carter Villa MD [Partnered Physician] - 07/13/17 2:05 pm <Mike Don - Last Filed: 06/25/17 13:16> Date of Encounter: 06/12/17 - Time Spent With Patient Total time spent is greater than 50% in coordination of care (as documented) at patient's floor/unit and/or counseling patient: GI History of Present Illness - Data of Consult Requesting Physician: Erwin Lamb - Consult Narrative History of present illness: Ms. Bird is a 26 year old female - Constitutional Vitals: Temp Pulse Resp BP Pulse Ox 97.9 F 85 16 123/81 98 06/15/17 10:08 06/15/17 10:08 06/15/17 10:08 06/15/17 10:08 06/15/17 10:08 Results - Labs CBC & Chem 7: 06/14/17 10:16 06/14/17 10:16 Labs: Last Result Calcium 7.9 mg/dL (8.6-10.3) L 06/14/17 10:16 Triglycerides 50 mg/dL (< 150) 06/12/17 04:10 Salicylates < 5.0 mg/dL (15.0-30.0) L 06/11/17 18:52 Urine Opiates Screen Negative ng/mL (Vysckh=833) 06/13/17 16:21 Entire Visit Hgb 11.2 g/dL (11.5-15.4) L 06/14/17 10:16 Hct 34.8 % (35.3-44.9) L 06/14/17 10:16 Total Bilirubin 0.5 mg/dL (0.3-1.0) 06/13/17 09:43 AST 28 Units/L (13-39) 06/13/17 09:43 ALT 77 Units/L (7-52) H 06/13/17 09:43 Lipase 71 Units/L (11-82) 06/13/17 13:21 Acetaminophen < 1.0 mcg/mL (10-30) L 06/11/17 18:52 - ABG ABG results: ABG ABG pH 7.41 pH Units (7.32-7.45) 06/12/17 11:01 ABG pCO2 33 mmHg (35-45) L 06/12/17 11:01 ABG pO2 72 mmHg (85-104) L 06/12/17 11:01 ABG O2 Saturation 95 % (95-98) 06/12/17 11:01 - Attending Attestation For this encounter, I have reviewed the DRAPERY AND UPHOLSTERY MEASURER or PA documentation, treatment plan, and medical decision making; and I have had face to face time with this patient.Acute gallstone pancreatitis. Pain management, fluids, and laparoscopic cholecystectomy before discharge. Thanks
[2017-06-12] MEDS: Pantoprazole 40 MG VIAL IVP SCH (17:14)
--- NOTE | 2017-06-12 17:39 | Internal Med Progress Note ---
Date of Encounter: 06/12/17 Time of Encounter: 10:00 - Assessment and plan (1) Pancreatitis Current Visit: Yes Status: Acute Assessment and plan: -Lipase was 424 on admission and is 222 today with slight elevation in transaminases. -CT of the abdomen showed extensive inflammatory changes, which appear to be centered within the anterior pararenal space; most likely etiology of that is duodenitis involving the 2nd and 3rd portions of the duodenum. -Right upper quadrant ultrasound showed cholelithiasis and common bile duct obstruction. -MRCP showed no cholelithiasis or biliary duct dilation but gallbladder was noted to be loaded with small stones. -Continue IV Cipro/Flagyl in addition to IV fluids. -Gen. surgery following and appreciate recommendations. Qualifiers: Chronicity: acute Pancreatitis type: unspecified pancreatitis type Acute pancreatitis complication: unspecified Qualified Code(s): K85.90 - Acute pancreatitis without necrosis or infection, unspecified (2) Duodenitis Current Visit: Yes Status: Acute Assessment and plan: -Suspect secondary to the above (3) Mood disorder Current Visit: Yes Status: Acute Assessment and plan: -Continue home medications. - Subjective Interval history: Patient somnolent this morning but answer questions appropriately. Patient has been weaned off supplemental oxygenation She will remain nothing by mouth due to a pancreatitis/duodenitis - Constitutional Vitals: Temp Pulse Resp BP Pulse Ox 97.7 F 109 16 122/80 98 06/12/17 14:45 06/12/17 14:45 06/12/17 14:45 06/12/17 14:45 06/12/17 14:45 General appearance: Present: cooperative, mild distress (due to epigastric pain) , A&O X 3, pleasant, answers questions appropriately - Respiratory Respiratory exam: Present: CTAB. Absent: accessory muscle use, rales, rhonchi, wheezes - Cardiovascular Cardiovascular exam: Present: RRR, +S1, +S2. Absent: diastolic murmur, gallop, rubs, systolic murmur Internal Medicine: Result - Labs CBC & Chem 7: 06/12/17 04:10 06/12/17 04:10 Labs: Short CBC 06/12/17 Range/Units 04:10 WBC 16.0 H (4.3-11.1) K/mcL Hgb 12.4 D (11.5-15.4) g/dL Hct 37.4 (35.3-44.9) % Plt Count 322 (140-400) K/mcL Neutrophils # 12.2 H (1.6-8.9) K/mcL BMP 06/12/17 04:10 Sodium 132 L Potassium 3.8 Chloride 105 Carbon Dioxide 24 BUN 10 Creatinine 0.52 L Glucose 105 Calcium 7.4 L Liver Function 06/12/17 Range/Units 04:10 Total Bilirubin 0.6 (0.3-1.0) mg/dL Direct Bilirubin 0.2 (0.0-0.2) mg/dL AST 50 H (13-39) Units/L ALT 115 H (7-52) Units/L Alkaline Phosphatase 65 (34-104) Units/L Albumin 3.1 L (3.5-5.7) g/dL - ABG Interpretation ABG results: ABG ABG pH 7.41 pH Units (7.32-7.45) 06/12/17 11:01 ABG pCO2 33 mmHg (35-45) L 06/12/17 11:01 ABG pO2 72 mmHg (85-104) L 06/12/17 11:01 ABG O2 Saturation 95 % (95-98) 06/12/17 11:01 - Impressions Impressions Gallbladder Ultrasound 06/11/17 21:57 IMPRESSION: Cholelithiasis and common bile duct obstruction. HIDA scan may be helpful for further characterization. D/ / Rod Landrum MD / Rod Landrum MD Interpreting Provider: Rod Landrum MD Abdomen MRI 06/12/17 09:46 IMPRESSION: 1. No choledocholithiasis. No biliary ductal dilatation. 2. Cholelithiasis. Gallbladder loaded with small stones. 3. Perihepatic free fluid and duodenal thickening. Duodenitis possible. Please correlate with with the prior CT. This exam is not optimized to evaluate the GI tract. 4. Trace pleural effusion and bibasilar subsegmental atelectasis right greater than left. D/ / Pablo Segura MD / Pablo Segura MD Interpreting Provider: Pablo Segura MD Chest X-Ray 06/12/17 10:23 IMPRESSION: Right lower lobe airspace disease concerning for pneumonia. Radiographic follow-up recommended to assure resolution. D/ / 06/12/2017 11:39:05 George Talamantes MD / yee Interpreting Provider: George Talamantes MD Consult Discharge Plan - Plan Referrals: NONE,PCP [Primary Care Provider] - (Patient prefers to find own primary care physician. Thank you)
[2017-06-12] MEDS ORDERED: Acetaminophen IV 1,000 MG/100 ML INFUS..BTL IVPB SCH (18:00)
[2017-06-12] MEDS: Ketorolac 30 MG/ML VIAL IVP PRN (19:52)
[2017-06-13] MEDS: *HR* Dextrose 50 % in Water (Syg) 50 ML SYRINGE IVP PRN ×2 (01:30→06:41)
[2017-06-13] MEDS: Ketorolac 30 MG/ML VIAL IVP PRN ×3 (04:09→23:25)
[2017-06-13] MEDS: MetroNIDAZOLE 500 MG/100 ML 500 MG/100 ML BAG IVPB SCH ×4 (05:17→23:22)
[2017-06-13] MEDS: Pantoprazole 40 MG VIAL IVP SCH ×2 (08:23→18:45)
[2017-06-13] MEDS: 0.9 % Sodium Chloride 1,000 ML IVC SCH (08:24)
[2017-06-13] MEDS: Acetaminophen IV 1,000 MG/100 ML INFUS..BTL IVPB SCH ×2 (08:25→12:07)
[2017-06-13] MEDS: Nicotine 14 MG PATCH.TD24 TD SCH (08:25)
[2017-06-13 10:23] LABS: Basophils % 0.2 %; Eosinophils # 0.1 K/mcL (0.0-0.6); Eosinophils % 0.8 %; Hematocrit 35.8 % (35.3-44.9); Hemoglobin 11.4 g/dL (11.5-15.4); Immature Granulocytes % 0.2 % (0-4); Lymphocytes # 1.6 K/mcL (0.6-4.6); Lymphocytes % 11.9 %; Mean Corpuscular HGB Conc 31.8 g/dL (31.6-35.5); Mean Corpuscular Volume 94.2 fL (83.0-100.0); Mean Platelet Volume 8.9 fL (9.4-12.4); Monocytes % 7.6 %; Neutrophils # 10.3 K/mcL (1.6-8.9); Platelet Count 330 K/mcL (140-400); Red Cell Distribution Width 13.5 % (11.5-14.5); Segmented Neutrophils % 79.3 %
--- NOTE | 2017-06-13 10:27 | General Surgery Progress Note ---
<Rose Tinoco - Last Filed: 06/13/17 14:19> Date of Encounter: 06/13/17 Time of Encounter: 10:25 - Assessment and Plan (1) Pancreatitis Current Visit: Yes Status: Acute Symptoms consistent with pancreatitis, presence of fluid collections on CT and elevation in pancreatic enzymes concerning for pancreatitis Pt remains afebrile, hemodynamically stable - Continue Antibiotics - Pain management: Ofirmev 1000 mg q6 while NPO and only if pain not alleviated by ofirmev, may resort to Toradol 15 mg q6 PRN if necessary - CBC, BMP in AM. Replete electrolytes prn - Lipase pending. If downtrending and continued improvement in clinical status, will advance cautiously to a clear liquid diet Qualifiers: Chronicity: acute Pancreatitis type: unspecified pancreatitis type Acute pancreatitis complication: unspecified Qualified Code(s): K85.90 - Acute pancreatitis without necrosis or infection, unspecified (2) Duodenitis Current Visit: Yes Status: Acute Plan, as above. Duodenitis demontrated on CT, possibly 2/2 to pancreatitis. (3) Hyponatremia Current Visit: Yes Status: Acute Asymptomatic. Management, per primary team. CMP pending. Recommend serial BMPs for close monitoring. (4) MDD (major depressive disorder), recurrent episode, severe Current Visit: No Status: Acute Denies SI/HI to resident MD on evaluation. Management per primary team. Qualifiers: Psychotic features: without psychotic features Qualified Code(s): F33.2 - Major depressive disorder, recurrent severe without psychotic features (5) Anxiety Current Visit: No Status: Chronic Management per primary team. (6) DVT prophylaxis Current Visit: Yes Status: Acute Management per primary team. Subjective Patient reports: no new complaints, feels better, pain is less (rates as 4/10), no flatus, bowel movement (yesterday evening.) Narrative: No acute events overnight. Pain reduced from 10/10 to 4/10. Denies nausea, vomiting. Objective Vital Signs - Last 8 Hours Temp Pulse Resp BP Pulse Ox 06/13/17 06:31 97.9 F 88 16 104/68 96 06/13/17 03:40 98.8 F 92 15 102/66 98 Intake and Output 06/12/17 06/13/17 06/13/17 23:59 07:59 15:59 Intake Total 1400 / 1400 100 / 100 Output Total 0 / 0 0 / 0 Balance 1400 / 1400 100 / 100 Intake: IV Fluids 1400 / 1400 100 / 100 0.9 % Sodium Chloride 1,000 ML 1000 / 1000 @ 125 mls/hr IVC .Q8H [facility] Rx#: [id number] Ofirmev 1,000 mg/100 ml 1,000 100 / 100 mg In 100 ml @ 400 mls/hr IVPB Q6H [facility] Rx#:[id number] Cipro Premix 400 MG/200 ML 400 200 / 200 mg In 200 ml @ 200 mls/hr IVPB Q12HR [facility] Rx#:[id number] Flagyl Premix 500 MG/100 ML 500 100 / 100 100 / 100 mg In 100 ml @ 100 mls/hr IVPB Q6HR [facility] Rx#:[id number] Oral 0 / 0 0 / 0 Output: Urine 0 / 0 0 / 0 Other: Meal NPO NPO Percent of Meal Consumed 0% # Voids 2 # Bowel Movements 0 Weight 65.4 kg Blood Glucose* 69 87 Patient Weight 06/13/17 23:59 Weight 65.4 kg - General physical appearance no distress - Eyes normal ocular movement - Respiratory normal expansion, normal respiratory effort, clear to auscultation - Cardiovascular Cardiovascular exam: Present: RRR - Abdomen Abdomen: Present: bowel sounds present, soft, non tender - Labs 06/13/17 09:43 06/13/17 09:43 - VTE Reasons for not Prescribing Prophylaxis: Medical contraindication Consult Discharge Plan - Plan Referrals: NONE,PCP [Primary Care Provider] - (Patient prefers to find own primary care physician. Thank you) <Carter Villa - Last Filed: 06/13/17 18:11> Date of Encounter: 06/13/17 Objective Vital Signs - Last 8 Hours Temp Pulse Resp BP Pulse Ox 06/13/17 15:04 97.7 F 97 16 107/73 98 06/13/17 10:56 98.8 F 97 16 120/78 100 Intake and Output 06/13/17 06/13/17 06/13/17 07:59 15:59 23:59 Intake Total 200 / 200 480 / 480 Output Total 0 / 0 Balance 200 / 200 480 / 480 Intake: IV Fluids 200 / 200 Flagyl Premix 500 MG/100 ML 500 200 / 200 mg In 100 ml @ 100 mls/hr IVPB Q6HR [facility] Rx#:[id number] Oral 0 / 0 480 / 480 Output: Urine 0 / 0 Other: Meal Clear # Voids 1 # Bowel Movements 0 0 Weight 65.4 kg Blood Glucose* 87 64 Patient Weight 06/13/17 23:59 Weight 65.4 kg - Labs 06/13/17 09:43 06/13/17 09:43 Diabetes panel 06/13/17 Range/Units 09:43 Sodium 136 (136-145) mEq/L Potassium 3.4 L (3.5-5.1) mEq/L Chloride 108 H (98-107) mEq/L Carbon Dioxide 24 (23-29) mEq/L BUN 10 (6-20) mg/dL Creatinine 0.53 L (0.60-1.20) mg/dL Glucose 97 (70-105) mg/dL Calcium 7.8 L (8.6-10.3) mg/dL AST 28 (13-39) Units/L ALT 77 H (7-52) Units/L Alkaline Phosphatase 62 (34-104) Units/L Albumin 2.9 L (3.5-5.7) g/dL Calcium panel 06/13/17 Range/Units 09:43 Calcium 7.8 L (8.6-10.3) mg/dL Albumin 2.9 L (3.5-5.7) g/dL Pituitary panel 06/13/17 Range/Units 09:43 Sodium 136 (136-145) mEq/L Potassium 3.4 L (3.5-5.1) mEq/L Chloride 108 H (98-107) mEq/L Carbon Dioxide 24 (23-29) mEq/L BUN 10 (6-20) mg/dL Creatinine 0.53 L (0.60-1.20) mg/dL Glucose 97 (70-105) mg/dL Calcium 7.8 L (8.6-10.3) mg/dL Adrenal panel 06/13/17 Range/Units 09:43 Sodium 136 (136-145) mEq/L Potassium 3.4 L (3.5-5.1) mEq/L Chloride 108 H (98-107) mEq/L Carbon Dioxide 24 (23-29) mEq/L BUN 10 (6-20) mg/dL Creatinine 0.53 L (0.60-1.20) mg/dL Glucose 97 (70-105) mg/dL Calcium 7.8 L (8.6-10.3) mg/dL Total Bilirubin 0.5 (0.3-1.0) mg/dL AST 28 (13-39) Units/L ALT 77 H (7-52) Units/L Alkaline Phosphatase 62 (34-104) Units/L Albumin 2.9 L (3.5-5.7) g/dL - Attending Attestation I examined this patient and my medical decision-making was reviewed with the Resident Physician. I agree with the documented findings, disposition and treatment plan as described except to the extent set forth below. I reviewed the above assessment and evaluation with the resident present. Patient has decreased abdominal pain symptoms. No nausea or vomiting. On examination patient has mild tenderness to palpation in the epigastrium. Lipase level noted to be 75. Will add clear liquids and continue to follow abdominal exam closely. Plan overall would be to hold on any type of removal of the gallbladder until at least 4-6 weeks.
[2017-06-13 10:44] LABS: Alanine Aminotransferase 77 Units/L (7-52); Albumin 2.9 g/dL (3.5-5.7); Albumin/Globulin Ratio 1.1 (1.1-2.2); Alkaline Phosphatase 62 Units/L (34-104); Aspartate Amino Transferase 28 Units/L (13-39); BUN/Creatinine Ratio 19 (6-26); Bilirubin,Total 0.5 mg/dL (0.3-1.0); Blood Urea Nitrogen 10 mg/dL (6-20); Calcium 7.8 mg/dL (8.6-10.3); Carbon Dioxide 24 mEq/L (23-29); Chloride 108 mEq/L (98-107); Globulin 2.6 g/dL (2.4-3.5); Glucose 97 mg/dL (70-105); Osmolality,Calculated 281 (280-300); Potassium 3.4 mEq/L (3.5-5.1); Sodium 136 mEq/L (136-145); Total Protein 5.5 g/dL (6.4-8.9); eGFR For African Americans > 60 (> 60); eGFR For Non-African Americans > 60 (> 60)
[2017-06-13] MEDS: D5% in 0.45% NACL 1,000 ML IVC SCH (12:38)
[2017-06-13 13:24] LABS: Lipase 75 Units/L (11-82)
[2017-06-13 17:01] LABS: Amphetamine Screen,Urine Negative ng/mL (Cutoff=1000); Cannabinoid Screen,Urine Positive ng/mL (Cutoff = 50); Cocaine Screen,Urine Negative ng/mL (Cutoff= 300)
[2017-06-13 17:26] LABS: Barbiturate Screen,Urine Negative ng/mL (Cutoff=200); Benzodiazepines Screen,Urine Negative ng/mL (Cutoff=200); Opiate Screen,Urine Negative ng/mL (Cutoff=300); Phencyclidine Screen,Urine Negative ng/mL (Cutoff=25)
--- NOTE | 2017-06-13 18:07 | Internal Med Progress Note ---
Date of Encounter: 06/13/17 Time of Encounter: 11:00 - Assessment and plan (1) Pancreatitis Current Visit: Yes Status: Acute Assessment and plan: -Patient's abdominal pain has improved and diet was advanced to clears; patient tolerating clear diet -Lipase continues to trend downward centered within the anterior pararenal space ; most likely etiology of that is duodenitis involving the 2nd and 3rd portions of the duodenum. -Right upper quadrant ultrasound showed cholelithiasis and common bile duct obstruction. -MRCP showed no cholelithiasis or biliary duct dilation but gallbladder was noted to be loaded with small stones. -Continue IV Cipro/Flagyl in addition to IV fluids. -Gen. surgery following and appreciate recommendations. Qualifiers: Chronicity: acute Pancreatitis type: unspecified pancreatitis type Acute pancreatitis complication: unspecified Qualified Code(s): K85.90 - Acute pancreatitis without necrosis or infection, unspecified (2) Duodenitis Current Visit: Yes Status: Acute Assessment and plan: -Suspect secondary to the above (3) Mood disorder Current Visit: Yes Status: Acute Assessment and plan: -Continue home medications. - Subjective Interval history: Patient's abdominal pain improving and requesting food. Patient was started on clears and is tolerating well - Constitutional Vitals: Temp Pulse Resp BP Pulse Ox 97.7 F 97 16 107/73 98 06/13/17 15:04 06/13/17 15:04 06/13/17 15:04 06/13/17 15:04 06/13/17 15:04 General appearance: Present: cooperative, mild distress (due to epigastric pain) , A&O X 3, pleasant, answers questions appropriately - Respiratory Respiratory exam: Present: CTAB. Absent: accessory muscle use, rales, rhonchi, wheezes - Cardiovascular Cardiovascular exam: Present: RRR, +S1, +S2. Absent: diastolic murmur, gallop, rubs, systolic murmur - GI/Abdominal GI/Abdominal exam: Present: normal bowel sounds, soft, no peritoneal signs. Absent: distended, tenderness Internal Medicine: Result - Labs CBC & Chem 7: 06/13/17 09:43 06/13/17 09:43 Labs: Short CBC 06/13/17 Range/Units 09:43 WBC 13.0 H (4.3-11.1) K/mcL Hgb 11.4 L (11.5-15.4) g/dL Hct 35.8 (35.3-44.9) % Plt Count 330 (140-400) K/mcL Neutrophils # 10.3 H (1.6-8.9) K/mcL BMP 06/13/17 09:43 Sodium 136 Potassium 3.4 L Chloride 108 H Carbon Dioxide 24 BUN 10 Creatinine 0.53 L Glucose 97 Calcium 7.8 L Liver Function 06/13/17 Range/Units 09:43 Total Bilirubin 0.5 (0.3-1.0) mg/dL AST 28 (13-39) Units/L ALT 77 H (7-52) Units/L Alkaline Phosphatase 62 (34-104) Units/L Albumin 2.9 L (3.5-5.7) g/dL - ABG Interpretation ABG results: ABG ABG pH 7.41 pH Units (7.32-7.45) 06/12/17 11:01 ABG pCO2 33 mmHg (35-45) L 06/12/17 11:01 ABG pO2 72 mmHg (85-104) L 06/12/17 11:01 ABG O2 Saturation 95 % (95-98) 06/12/17 11:01 - VTE Reasons for not Prescribing Prophylaxis: Medical contraindication Consult Discharge Plan - Plan Referrals: NONE,PCP [Primary Care Provider] - (Patient prefers to find own primary care physician. Thank you)
[2017-06-13] MEDS: traZODone 50 MG TABLET PO PRN (20:39)
[2017-06-14] MEDS: D5% in 0.45% NACL 1,000 ML IVC SCH (02:06)
[2017-06-14] MEDS: MetroNIDAZOLE 500 MG/100 ML 500 MG/100 ML BAG IVPB SCH ×4 (04:56→23:44)
[2017-06-14] MEDS: Pantoprazole 40 MG VIAL IVP SCH ×2 (05:59→19:46)
[2017-06-14] MEDS: Nicotine 14 MG PATCH.TD24 TD SCH (08:42)
[2017-06-14] MEDS ORDERED: Venlafaxine XR (24 HR) 75 MG CAP.ER.24H PO SCH ×2 (09:00→18:00)
[2017-06-14] MEDS ORDERED: ARIPiprazole 10 MG TABLET PO SCH ×2 (09:00→18:00)
--- NOTE | 2017-06-14 10:26 | General Surgery Progress Note ---
<Rose Tinoco - Last Filed: 06/14/17 12:58> Date of Encounter: 06/14/17 Time of Encounter: 10:24 - Assessment and Plan (1) Pancreatitis Current Visit: Yes Status: Acute Initial Symptoms consistent with pancreatitis, presence of fluid collections on CT and elevation in pancreatic enzymes concerning for pancreatitis Pt remains afebrile, hemodynamically stable -will advance diet cautiously: Low Fat content, full liquid diet. -Will monitor tolerance of low-fat diet. If pt continues to tolerate low fat diet today, then OK to advance to soft, food low -fat tomorrow for breakfast. If she tolerates this, we feel comfortable a subsequent consideration for discharge then, pending on stable clinical status, and we will follow up with patient as outpatient. -Encourage ambulation TID, or as tolerated -Replete electrolytes prn -Continue pain management -Please call for any urgent questions Qualifiers: Chronicity: acute Pancreatitis type: unspecified pancreatitis type Acute pancreatitis complication: unspecified Qualified Code(s): K85.90 - Acute pancreatitis without necrosis or infection, unspecified (2) Duodenitis Current Visit: Yes Status: Acute Plan, as above. Duodenitis demontrated on CT, possibly 2/2 to pancreatitis. (3) Hyponatremia Current Visit: Yes Status: Resolved Corrected. Management per primary team. (4) MDD (major depressive disorder), recurrent episode, severe Current Visit: No Status: Acute Management per primary team. Qualifiers: Psychotic features: without psychotic features Qualified Code(s): F33.2 - Major depressive disorder, recurrent severe without psychotic features (5) Anxiety Current Visit: No Status: Chronic Management per primary team. (6) Polysubstance (excluding opioids) dependence Current Visit: Yes Status: Acute Counseled pt to consider discontinuation of marijuana and concomitant substance abuse. (7) DVT prophylaxis Current Visit: Yes Status: Acute Management per primary team. Subjective Patient reports: no new complaints, feels better, pain is less (Rates pain 1-2) , tolerating liquids well, flatus, no bowel movement, afebrile Narrative: No acute events overnight. Request advancement of diet. Objective Vital Signs - Last 8 Hours Temp Pulse Resp BP Pulse Ox 06/14/17 06:57 98.6 F 100 16 103/65 95 06/14/17 04:08 98.6 F 98 16 103/70 97 Intake and Output 06/13/17 06/14/17 06/14/17 23:59 07:59 15:59 Intake Total 1300 / 1300 200 / 200 Output Total 0 / 0 300 / 300 Balance 1300 / 1300 -100 / -100 Intake: IV Fluids 1300 / 1300 200 / 200 D5% And 0.45% Nacl 1000 Ml Bag 1000 / 1000 1,000 ML @ 125 mls/hr IVC .Q8H [facility] Rx#:[id number] Cipro Premix 400 MG/200 ML 400 200 / 200 mg In 200 ml @ 200 mls/hr IVPB Q12HR [facility] Rx#:[id number] Flagyl Premix 500 MG/100 ML 500 100 / 100 200 / 200 mg In 100 ml @ 100 mls/hr IVPB Q6HR [facility] Rx#:[id number] Output: Urine 0 / 0 300 / 300 Other: # Voids 1 1 # Bowel Movements 0 - General physical appearance well developed, no distress - Eyes normal ocular movement - Respiratory normal expansion, normal respiratory effort, clear to auscultation - Abdomen Abdomen: Present: bowel sounds present, soft, non tender - Neurologic normal coordination - Psychiatric oriented to time, oriented to person, oriented to place, speech is normal - Labs 06/14/17 10:16 06/14/17 10:16 Diabetes panel 06/13/17 Range/Units 09:43 Sodium 136 (136-145) mEq/L Potassium 3.4 L (3.5-5.1) mEq/L Chloride 108 H (98-107) mEq/L Carbon Dioxide 24 (23-29) mEq/L BUN 10 (6-20) mg/dL Creatinine 0.53 L (0.60-1.20) mg/dL Glucose 97 (70-105) mg/dL Calcium 7.8 L (8.6-10.3) mg/dL AST 28 (13-39) Units/L ALT 77 H (7-52) Units/L Alkaline Phosphatase 62 (34-104) Units/L Albumin 2.9 L (3.5-5.7) g/dL Calcium panel 06/13/17 Range/Units 09:43 Calcium 7.8 L (8.6-10.3) mg/dL Albumin 2.9 L (3.5-5.7) g/dL Pituitary panel 06/13/17 Range/Units 09:43 Sodium 136 (136-145) mEq/L Potassium 3.4 L (3.5-5.1) mEq/L Chloride 108 H (98-107) mEq/L Carbon Dioxide 24 (23-29) mEq/L BUN 10 (6-20) mg/dL Creatinine 0.53 L (0.60-1.20) mg/dL Glucose 97 (70-105) mg/dL Calcium 7.8 L (8.6-10.3) mg/dL Adrenal panel 06/13/17 Range/Units 09:43 Sodium 136 (136-145) mEq/L Potassium 3.4 L (3.5-5.1) mEq/L Chloride 108 H (98-107) mEq/L Carbon Dioxide 24 (23-29) mEq/L BUN 10 (6-20) mg/dL Creatinine 0.53 L (0.60-1.20) mg/dL Glucose 97 (70-105) mg/dL Calcium 7.8 L (8.6-10.3) mg/dL Total Bilirubin 0.5 (0.3-1.0) mg/dL AST 28 (13-39) Units/L ALT 77 H (7-52) Units/L Alkaline Phosphatase 62 (34-104) Units/L Albumin 2.9 L (3.5-5.7) g/dL - VTE Reasons for not Prescribing Prophylaxis: Medical contraindication Consult Discharge Plan - Plan Referrals: NONE,PCP [Primary Care Provider] - (Patient prefers to find own primary care physician. Thank you) <Carter Villa - Last Filed: 06/14/17 17:22> Date of Encounter: 06/14/17 Objective Vital Signs - Last 8 Hours Temp Pulse Resp BP Pulse Ox 06/14/17 15:20 98.9 F 94 14 116/77 97 06/14/17 10:46 97.4 F L 99 16 118/80 100 Intake and Output 06/14/17 06/14/17 06/14/17 07:59 15:59 23:59 Intake Total 400 / 400 220 / 220 Output Total 300 / 300 300 / 300 Balance 100 / 100 -80 / -80 Intake: IV Fluids 400 / 400 100 / 100 Cipro Premix 400 MG/200 ML 400 200 / 200 mg In 200 ml @ 200 mls/hr IVPB Q12HR [facility] Rx#:[id number] Flagyl Premix 500 MG/100 ML 500 200 / 200 100 / 100 mg In 100 ml @ 100 mls/hr IVPB Q6HR [facility] Rx#:[id number] Oral 120 / 120 Output: Urine 300 / 300 300 / 300 Other: Meal Lunch Percent of Meal Consumed 100% Stool Size Large Stool Consistency liquid # Voids 1 1 # Bowel Movements 0 0 - Labs 06/14/17 10:16 06/14/17 10:16 Diabetes panel 06/14/17 Range/Units 10:16 Sodium 138 (136-145) mEq/L Potassium 3.4 L (3.5-5.1) mEq/L Chloride 109 H (98-107) mEq/L Carbon Dioxide 25 (23-29) mEq/L BUN 5 L (6-20) mg/dL Creatinine 0.59 L (0.60-1.20) mg/dL Glucose 105 (70-105) mg/dL Calcium 7.9 L (8.6-10.3) mg/dL Calcium panel 06/14/17 Range/Units 10:16 Calcium 7.9 L (8.6-10.3) mg/dL Pituitary panel 06/14/17 Range/Units 10:16 Sodium 138 (136-145) mEq/L Potassium 3.4 L (3.5-5.1) mEq/L Chloride 109 H (98-107) mEq/L Carbon Dioxide 25 (23-29) mEq/L BUN 5 L (6-20) mg/dL Creatinine 0.59 L (0.60-1.20) mg/dL Glucose 105 (70-105) mg/dL Calcium 7.9 L (8.6-10.3) mg/dL Adrenal panel 06/14/17 Range/Units 10:16 Sodium 138 (136-145) mEq/L Potassium 3.4 L (3.5-5.1) mEq/L Chloride 109 H (98-107) mEq/L Carbon Dioxide 25 (23-29) mEq/L BUN 5 L (6-20) mg/dL Creatinine 0.59 L (0.60-1.20) mg/dL Glucose 105 (70-105) mg/dL Calcium 7.9 L (8.6-10.3) mg/dL - Attending Attestation I examined this patient and my medical decision-making was reviewed with the Resident Physician. I agree with the documented findings, disposition and treatment plan as described except to the extent set forth below. I had the above assessment and evaluation and agree with the above-mentioned plan. To be tolerating full liquids (low-fat) and we will advance her diet to soft foods/low-fat for breakfast. If she tolerates breakfast I think it would be safe for her to be discharged home.
[2017-06-14 10:36] LABS: BUN/Creatinine Ratio 8 (6-26); Blood Urea Nitrogen 5 mg/dL (6-20); Calcium 7.9 mg/dL (8.6-10.3); Carbon Dioxide 25 mEq/L (23-29); Chloride 109 mEq/L (98-107); Glucose 105 mg/dL (70-105); Osmolality,Calculated 284 (280-300); Potassium 3.4 mEq/L (3.5-5.1); Sodium 138 mEq/L (136-145); eGFR For African Americans > 60 (> 60); eGFR For Non-African Americans > 60 (> 60)
[2017-06-14 10:44] LABS: Basophils % 0.2 %; Eosinophils # 0.1 K/mcL (0.0-0.6); Eosinophils % 1.1 %; Hematocrit 34.8 % (35.3-44.9); Hemoglobin 11.2 g/dL (11.5-15.4); Immature Granulocytes % 0.5 % (0-4); Lymphocytes # 1.8 K/mcL (0.6-4.6); Lymphocytes % 13.9 %; Mean Corpuscular HGB Conc 32.2 g/dL (31.6-35.5); Mean Corpuscular Hemoglobin 30.2 pg (28.0-33.3); Mean Corpuscular Volume 93.8 fL (83.0-100.0); Mean Platelet Volume 8.7 fL (9.4-12.4); Monocytes # 1.1 K/mcL (0.0-1.3); Monocytes % 8.8 %; Neutrophils # 9.5 K/mcL (1.6-8.9); Platelet Count 386 K/mcL (140-400); Red Blood Count 3.71 M/mcL (3.82-4.97); Red Cell Distribution Width 13.3 % (11.5-14.5); Segmented Neutrophils % 75.5 %
[2017-06-14] MEDS: Ibuprofen 600 MG TABLET PO PRN (15:24)
--- NOTE | 2017-06-14 18:10 | Internal Med Progress Note ---
Date of Encounter: 06/14/17 Time of Encounter: 11:00 - Assessment and plan (1) Pancreatitis Current Visit: Yes Status: Acute Assessment and plan: -Patient's abdominal pain has improved and diet was advanced to clears; patient tolerating clear diet -Lipase continues to trend downward centered within the anterior pararenal space ; most likely etiology of that is duodenitis involving the 2nd and 3rd portions of the duodenum. -Right upper quadrant ultrasound showed cholelithiasis and common bile duct obstruction. -MRCP showed no cholelithiasis or biliary duct dilation but gallbladder was noted to be loaded with small stones. -Patient's diet has been advanced to clear liquids and is tolerating well -Continue IV Cipro/Flagyl -Gen. surgery following and appreciate recommendations. Qualifiers: Chronicity: acute Pancreatitis type: unspecified pancreatitis type Acute pancreatitis complication: unspecified Qualified Code(s): K85.90 - Acute pancreatitis without necrosis or infection, unspecified (2) Duodenitis Current Visit: Yes Status: Acute Assessment and plan: -Suspect secondary to the above (3) Mood disorder Current Visit: Yes Status: Acute Assessment and plan: -Continue home medications. - Subjective Interval history: Patient's abdominal pain improving and requesting food. Patient was started on clears and is tolerating well - Constitutional Vitals: Temp Pulse Resp BP Pulse Ox 98.9 F 94 14 116/77 97 06/14/17 15:20 06/14/17 15:20 06/14/17 15:20 06/14/17 15:20 06/14/17 15:20 General appearance: Present: cooperative, mild distress (due to epigastric pain) , A&O X 3, pleasant, answers questions appropriately - Respiratory Respiratory exam: Present: CTAB. Absent: accessory muscle use, rales, rhonchi, wheezes - Cardiovascular Cardiovascular exam: Present: RRR, +S1, +S2. Absent: diastolic murmur, gallop, rubs, systolic murmur - GI/Abdominal GI/Abdominal exam: Present: normal bowel sounds, soft, no peritoneal signs. Absent: distended, tenderness Internal Medicine: Result - Labs CBC & Chem 7: 06/14/17 10:16 06/14/17 10:16 Labs: Short CBC 06/14/17 Range/Units 10:16 WBC 12.6 H (4.3-11.1) K/mcL Hgb 11.2 L (11.5-15.4) g/dL Hct 34.8 L (35.3-44.9) % Plt Count 386 (140-400) K/mcL Neutrophils # 9.5 H (1.6-8.9) K/mcL BMP 06/14/17 10:16 Sodium 138 Potassium 3.4 L Chloride 109 H Carbon Dioxide 25 BUN 5 L Creatinine 0.59 L Glucose 105 Calcium 7.9 L - ABG Interpretation ABG results: ABG ABG pH 7.41 pH Units (7.32-7.45) 06/12/17 11:01 ABG pCO2 33 mmHg (35-45) L 06/12/17 11:01 ABG pO2 72 mmHg (85-104) L 06/12/17 11:01 ABG O2 Saturation 95 % (95-98) 06/12/17 11:01 - VTE Reasons for not Prescribing Prophylaxis: Medical contraindication Consult Discharge Plan - Plan Referrals: NONE,PCP [Primary Care Provider] - (Patient prefers to find own primary care physician. Thank you)
[2017-06-14] MEDS: traZODone 50 MG TABLET PO PRN (23:44)
[2017-06-15] MEDS: Ibuprofen 600 MG TABLET PO PRN (02:27)
[2017-06-15] MEDS: Pantoprazole 40 MG VIAL IVP SCH (05:45)
[2017-06-15] MEDS: MetroNIDAZOLE 500 MG/100 ML 500 MG/100 ML BAG IVPB SCH (05:47)
[2017-06-15 06:32] VITALS: BP 123/81
[2017-06-15] MEDS: Nicotine 14 MG PATCH.TD24 TD SCH (08:48)
--- NOTE | 2017-06-15 09:49 | General Surgery Progress Note ---
Date of Encounter: 06/15/17 Time of Encounter: 09:47 - Assessment and Plan (1) Pancreatitis Current Visit: Yes Status: Acute Initial Symptoms consistent with pancreatitis, presence of fluid collections on CT and elevation in pancreatic enzymes concerning for pancreatitis -Pt remains afebrile, hemodynamically stable -Pt tolerating diet Low Fat content, full liquid diet. -Encourage ambulation, as tolerated -Educated pt on post-hospitalization diet recommendations -Please call for any urgent questions Qualifiers: Chronicity: acute Pancreatitis type: unspecified pancreatitis type Acute pancreatitis complication: unspecified Qualified Code(s): K85.90 - Acute pancreatitis without necrosis or infection, unspecified (2) Duodenitis Current Visit: Yes Status: Acute Plan, as above. Duodenitis demontrated on CT, possibly 2/2 to pancreatitis. (3) Hyponatremia Current Visit: Yes Status: Resolved Corrected. Management per primary team. (4) MDD (major depressive disorder), recurrent episode, severe Current Visit: No Status: Acute Management per primary team. Qualifiers: Psychotic features: without psychotic features Qualified Code(s): F33.2 - Major depressive disorder, recurrent severe without psychotic features (5) Anxiety Current Visit: No Status: Chronic Management per primary team. (6) Polysubstance (excluding opioids) dependence Current Visit: Yes Status: Acute Counseled pt to consider discontinuation of marijuana and concomitant substance abuse. (7) DVT prophylaxis Current Visit: Yes Status: Acute Management per primary team. Subjective Patient reports: no new complaints, tolerating a regular diet (low fat), flatus , afebrile Narrative: No acute events overnight. Pt would like to go home. Objective Vital Signs - Last 8 Hours Temp Pulse Resp BP Pulse Ox 06/15/17 08:50 99 06/15/17 06:27 97.9 F 82 14 123/81 99 06/15/17 04:21 97.8 F 70 16 119/77 99 Intake and Output 06/14/17 06/15/17 06/15/17 23:59 07:59 15:59 Intake Total 1660 / 1660 100 / 100 120 / 120 Balance 1660 / 1660 100 / 100 120 / 120 Intake: IV Fluids 1300 / 1300 100 / 100 D5% And 0.45% Nacl 1000 Ml Bag 1000 / 1000 1,000 ML @ 125 mls/hr IVC .Q8H [facility] Rx#:[id number] Cipro Premix 400 MG/200 ML 400 200 / 200 mg In 200 ml @ 200 mls/hr IVPB Q12HR [facility] Rx#:[id number] Flagyl Premix 500 MG/100 ML 500 100 / 100 100 / 100 mg In 100 ml @ 100 mls/hr IVPB Q6HR [facility] Rx#:[id number] Oral 360 / 360 120 / 120 Other: Meal Dinner Breakfast Percent of Meal Consumed 90% # Voids 1 1 # Bowel Movements 0 - General physical appearance no distress - Eyes normal ocular movement - Respiratory normal expansion, normal respiratory effort, clear to auscultation - Cardiovascular Cardiovascular exam: Present: RRR, no murmurs/rubs/gallops - Abdomen Abdomen: Present: bowel sounds present, soft, non tender - Psychiatric oriented to time, oriented to person, oriented to place, speech is normal - Labs 06/14/17 10:16 06/14/17 10:16 Diabetes panel 06/14/17 Range/Units 10:16 Sodium 138 (136-145) mEq/L Potassium 3.4 L (3.5-5.1) mEq/L Chloride 109 H (98-107) mEq/L Carbon Dioxide 25 (23-29) mEq/L BUN 5 L (6-20) mg/dL Creatinine 0.59 L (0.60-1.20) mg/dL Glucose 105 (70-105) mg/dL Calcium 7.9 L (8.6-10.3) mg/dL Calcium panel 06/14/17 Range/Units 10:16 Calcium 7.9 L (8.6-10.3) mg/dL Pituitary panel 06/14/17 Range/Units 10:16 Sodium 138 (136-145) mEq/L Potassium 3.4 L (3.5-5.1) mEq/L Chloride 109 H (98-107) mEq/L Carbon Dioxide 25 (23-29) mEq/L BUN 5 L (6-20) mg/dL Creatinine 0.59 L (0.60-1.20) mg/dL Glucose 105 (70-105) mg/dL Calcium 7.9 L (8.6-10.3) mg/dL Adrenal panel 06/14/17 Range/Units 10:16 Sodium 138 (136-145) mEq/L Potassium 3.4 L (3.5-5.1) mEq/L Chloride 109 H (98-107) mEq/L Carbon Dioxide 25 (23-29) mEq/L BUN 5 L (6-20) mg/dL Creatinine 0.59 L (0.60-1.20) mg/dL Glucose 105 (70-105) mg/dL Calcium 7.9 L (8.6-10.3) mg/dL - VTE Reasons for not Prescribing Prophylaxis: Medical contraindication Consult Discharge Plan - Plan Instructions: Pancreatitis (DC), Pancreatitis (GEN) Referrals: NONE,PCP [Primary Care Provider] - (Patient prefers to find own primary care physician. Thank you) Carter Villa MD [Partnered Physician] - 07/13/17 2:05 pm
--- NOTE | 2017-06-15 14:24 | Discharge Summary ---
Date of Encounter: 06/15/17 Time of Encounter: 11:00 - Discharge Diagnosis (1) Pancreatitis Priority: Primary Status: Acute Qualifiers: Chronicity: acute Pancreatitis type: unspecified pancreatitis type Acute pancreatitis complication: unspecified Qualified Code(s): K85.90 - Acute pancreatitis without necrosis or infection, unspecified (2) Duodenitis Priority: Primary Status: Acute (3) Mood disorder Priority: Secondary Status: Acute - Discharge Medications Home Medications: TraZODone 50 mg PO HS PRN #30 tablet 11/06/15 [Rx] Abilify mg PO DAILY 06/11/17 [History] Buspirone HCl [Buspar] 10 mg PO DAILY 06/11/17 [History] HydrOXYzine Pamoate [Vistaril] 50 mg PO TID PRN 06/11/17 [History] Venlafaxine HCl [Effexor Xr] 225 mg PO DAILY 06/11/17 [History] Allergies/Adverse Reactions: 3 Allergy/AdvReac Type Severity Reaction Status Date / Time diphenhydramine Allergy Hives Verified 11/03/15 18:23 [From Benadryl] Date of admission: 06/12/17 17:46 Primary care physician: PCP NONE - Patient Status Disposition: Home, Self-Care Condition: Fair - Discharge Instructions Instructions: Pancreatitis (DC), Pancreatitis (GEN), Low Fat Diet (DC) Follow Up With: Carter Villa MD [Partnered Physician] - 07/13/17 2:05 pm Hospital course: Patient is a 26-year-old female with past medical history significant for mood disorder who presented to the ER on 06/12/17 due to abdominal pain. Per patient, she has had abdominal pain, nausea, and vomiting approximately 3 days prior to admission. Patient also reported of nausea and vomiting in addition to severe periumbilical abdominal pain which she described as sharp and constant. Patient denies use of alcohol, however does smoke marijuana. In the ER, patient found to have leukocytosis with elevated lipase levels and was admitted to medical surgical floor for pancreatitis. During patients hospital stay general surgery was consulted with recommendations for right upper quadrant ultrasound showed cholelithiasis and common bile duct obstruction. MRCP showed no cholelithiasis or biliary duct dilation but gallbladder was noted to be loaded with small stones. Recommendations her general surgery for medical management and no surgical intervention at this time. Patients abdominal pain improved and lipase levels returned to normal after being made nothing by mouth. Patients diet was advanced as tolerates and had no issues or complaints of a dominant pain. Patient will be discharged to follow up with primary care provider. - Time Spent with Patient Total time spent providing and/or coordinating discharge services: Less than 30 minutes - Constitutional Vitals: Temp Pulse Resp BP Pulse Ox 97.9 F 85 16 123/81 98 06/15/17 10:08 06/15/17 10:08 06/15/17 10:08 06/15/17 10:08 06/15/17 10:08 General appearance: Present: cooperative, mild distress (due to epigastric pain) , A&O X 3, pleasant, answers questions appropriately - Respiratory Respiratory exam: Present: CTAB. Absent: accessory muscle use, rales, rhonchi, wheezes - Cardiovascular Cardiovascular exam: Present: RRR, +S1, +S2. Absent: diastolic murmur, gallop, rubs, systolic murmur - GI/Abdominal GI/Abdominal exam: Present: normal bowel sounds, soft, no peritoneal signs. Absent: distended, tenderness - VTE Reasons for not Prescribing Prophylaxis: Medical contraindication
== END 2017-06-15 14:38 | disposition home or self-care (01) | DRG 282 ==
LOC: EMEROO 17:56 → 3ANU 17:56
PROVIDERS: ADMIT Hospitalist; ATTEND Hospitalist

== ENCOUNTER 2017-10-16 02:00 | Inpatient (IN) ==
[2017-10-16] MEDS ORDERED: Isovue-370 500 ML INFUS..BTL IV ONE (02:27)
[2017-10-16] MEDS ORDERED: *HR* FentaNYL (PF) 100 MCG/2 ML VIAL IVP ONE (02:27)
--- NOTE | 2017-10-16 02:58 | Emergency Department Note ---
Disposition Clinical Impression: Elevated lipase Pancreatitis Qualifiers: Chronicity: acute Pancreatitis type: unspecified pancreatitis type Acute pancreatitis complication: unspecified Qualified Code(s): K85.90 - Acute pancreatitis without necrosis or infection, unspecified UTI (urinary tract infection) Qualifiers: Urinary tract infection type: site unspecified Hematuria presence: without hematuria Qualified Code(s): N39.0 - Urinary tract infection, site not specified Abdominal pain Qualifiers: Abdominal location: epigastric Qualified Code(s): R10.13 - Epigastric pain Disposition: Admitted As Inpatient Condition: Good Referrals: NONE,PCP [Primary Care Provider] - Forms: ED Satisfaction Letter, Work/School Release Time of Disposition: 04:42 General Adult HPI - General Chief complaint: ED Abdominal Pain Stated complaint: "Abd Pain/Hx of Gallbladder Issues" Time Seen by Provider: 10/16/17 02:17 Source: patient, family Mode of arrival: ambulatory Limitations: no limitations Nursing Notes Reviewed: Yes Vital Signs Reviewed: Yes - History of Present Illness HPI Narrative: Patient is a 26-year-old female that presents the emergency department for abdominal pain. She states that this began approximately one hour prior to arrival. Patient states that this feels very similar to her previous history of pancreatitis that she had back in June. Patient states that the pain is located in her epigastric region and does not currently radiate. States that her pain is a constant ache and rates it as a 6 out of 10. Patient denies any urinary symptoms or nausea or vomiting. Patient states that she does not feel that there is any chest due to having a tubal ligation. Pain Scale: 7 - Related Data Home Medications Medication Instructions Recorded Confirmed Abilify mg PO DAILY 06/11/17 Buspirone HCl [Buspar] 10 mg PO DAILY 06/11/17 06/11/17 HydrOXYzine Pamoate [Vistaril] 50 mg PO TID PRN 06/11/17 06/11/17 Venlafaxine HCl [Effexor Xr] 225 mg PO DAILY 06/11/17 06/11/17 Previous Rx's Medication Instructions Recorded TraZODone 50 mg PO HS PRN #30 tablet 11/06/15 Allergies Allergy/AdvReac Type Severity Reaction Status Date / Time diphenhydramine Allergy Hives Verified 11/03/15 18:23 [From Benadryl] All systems ED: reviewed and negative except as stated. Constitutional: Denies: fever, chills Cardiovascular: Denies: chest pain Respiratory: Denies: dyspnea Gastrointestinal: Reports: abdominal pain. 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 Absent: respiratory distress, wheezes - Cardiovascular Cardiovascular exam: Present: regular rate, normal rhythm, normal heart sounds, +S1, +S2 - Abdominal Exam Abdominal exam: Present: soft, tenderness, normal bowel sounds Abdominal tenderness: Present: epigastrium, moderate - Neurological Exam Neurological exam: Present: alert, oriented X3 - Psychiatric Psychiatric exam: Present: normal affect, normal mood - Skin Skin exam: Present: warm, dry, intact Course Vital Signs Temperature 97.4 F L 10/16/17 02:03 Pulse Rate 69 10/16/17 02:03 Respiratory Rate 20 10/16/17 02:03 Blood Pressure 130/75 10/16/17 02:03 O2 Sat by Pulse Oximetry 96 10/16/17 02:03 Temperature 97.4 F L 10/16/17 03:28 Pulse Rate 69 10/16/17 03:28 Respiratory Rate 20 10/16/17 03:28 Blood Pressure 130/75 10/16/17 03:28 O2 Sat by Pulse Oximetry 96 10/16/17 03:28 Oxygen Delivery Oxygen Delivery Room Air Medical Decision Making - MDM Narrative Medical decision making narrative: The patient presenting emergency department with abdominal pain similar to her previous episode of pancreatitis we will obtain laboratory testing including a CBC, BMP, hepatic panel, lipase, urinalysis, urine and a CT scan of the abdomen and pelvis. Patient had a lipase of greater than 1800. Her urine is consistent with a urinary tract infection with the urine being positive for nitrites and leukocyte esterase and having bacteria present. We will treat this with a gram of Rocephin. Due to the patient having significantly elevated lipase we will admit the patient to the hospital for further evaluation and management. Patient will be started on IV fluids and analgesics have been given. CT scan did not show any acute findings per radiology read. However due to the patient having such a significantly elevated lipase with abdominal pain feel it is important the patient be admitted to the hospital. I called and spoke with the admitting hospitalist and he has accepted the patient to their service. The patient be admitted to the hospital for further evaluation and management. - Medical Records Medical records reviewed: Yes I reviewed the patient's medical records. - Lab Data Lab results reviewed: Yes I reviewed the patient's lab results. Result diagrams: 10/16/17 02:35 10/16/17 02:35 Lab Results 10/16/17 10/16/17 10/16/17 Range/Units 02:35 02:35 02:44 WBC 9.6 (4.3-11.1) K/mcL RBC 4.22 (3.82-4.97) M/mcL Hgb 13.4 (11.5-15.4) g/dL Hct 40.1 (35.3-44.9) % MCV 95.0 (83.0-100.0) fL MCH 31.8 (28.0-33.3) pg MCHC 33.4 (31.6-35.5) g/dL RDW 13.0 (11.5-14.5) % Plt Count 291 (140-400) K/mcL MPV 8.9 L (9.4-12.4) fL Immature Gran % 0.4 (0-4) % Seg Neutrophils % 59.7 % Lymphocytes % 32.6 % Monocytes % 5.6 % Eosinophils % 1.4 % Basophils % 0.3 % Neutrophils # 5.7 (1.6-8.9) K/mcL Lymphocytes # 3.1 (0.6-4.6) K/mcL Monocytes # 0.5 (0.0-1.3) K/mcL Eosinophils # 0.1 (0.0-0.6) K/mcL Basophils # 0.0 (0.0-0.2) K/mcL Sodium 139 (136-145) mEq/L Potassium 4.4 (3.5-5.1) mEq/L Chloride 105 (98-107) mEq/L Carbon Dioxide 30 H (23-29) mEq/L BUN 12 (6-20) mg/dL Creatinine 0.94 (0.60-1.20) mg/dL Est GFR ( Amer) > 60 (> 60) Est GFR (Non-Af Amer) > 60 (> 60) BUN/Creatinine Ratio 13 (6-26) Glucose 100 (70-105) mg/dL Calculated Osmolality 288 (280-300) Calcium 9.2 (8.6-10.3) mg/dL Total Bilirubin 0.3 (0.3-1.0) mg/dL Direct Bilirubin 0.0 (0.0-0.2) mg/dL Indirect Bilirubin 0.3 (0.0-1.2) mg/dL AST 138 H (13-39) Units/L ALT 46 (7-52) Units/L Alkaline Phosphatase 83 (34-104) Units/L Serum Total Protein 6.8 (6.4-8.9) g/dL Albumin 3.9 (3.5-5.7) g/dL Globulin 2.9 (2.4-3.5) g/dL Albumin/Globulin Ratio 1.3 (1.1-2.2) Lipase > 1800 H (11-82) Units/L Urine Color (Yellow) Urine Clarity (Clear) Urine pH (5.0-8.0) pH Units Ur Specific [place] (1.010-1.025) Urine Protein (Neg-Trace) mg/dL Urine Glucose (UA) (Normal) mg/dL Urine Ketones (Negative) mg/dL Urine Blood (Negative) Urine Nitrite (Negative) Urine Bilirubin (Negative) Urine Urobilinogen (Normal) mg/dL Ur Leukocyte Esterase (Negative) Urine Microscopic RBC (0-3) per hpf Urine Microscopic WBC (0-3) per hpf Ur Squamous Epith Cells (None-Few) per lpf Urine Bacteria (None-Few) per hpf Hyaline Casts (None-Few) per lpf Ur Culture Indicated? (NO) Urine Test Negative (Negative) 10/16/17 Range/Units 02:44 WBC (4.3-11.1) K/mcL RBC (3.82-4.97) M/mcL Hgb (11.5-15.4) g/dL Hct (35.3-44.9) % MCV (83.0-100.0) fL MCH (28.0-33.3) pg MCHC (31.6-35.5) g/dL RDW (11.5-14.5) % Plt Count (140-400) K/mcL MPV (9.4-12.4) fL Immature Gran % (0-4) % Seg Neutrophils % % Lymphocytes % % Monocytes % % Eosinophils % % Basophils % % Neutrophils # (1.6-8.9) K/mcL Lymphocytes # (0.6-4.6) K/mcL Monocytes # (0.0-1.3) K/mcL Eosinophils # (0.0-0.6) K/mcL Basophils # (0.0-0.2) K/mcL Sodium (136-145) mEq/L Potassium (3.5-5.1) mEq/L Chloride (98-107) mEq/L Carbon Dioxide (23-29) mEq/L BUN (6-20) mg/dL Creatinine (0.60-1.20) mg/dL Est GFR ( Amer) (> 60) Est GFR (Non-Af Amer) (> 60) BUN/Creatinine Ratio (6-26) Glucose (70-105) mg/dL Calculated Osmolality (280-300) Calcium (8.6-10.3) mg/dL Total Bilirubin (0.3-1.0) mg/dL Direct Bilirubin (0.0-0.2) mg/dL Indirect Bilirubin (0.0-1.2) mg/dL AST (13-39) Units/L ALT (7-52) Units/L Alkaline Phosphatase (34-104) Units/L Serum Total Protein (6.4-8.9) g/dL Albumin (3.5-5.7) g/dL Globulin (2.4-3.5) g/dL Albumin/Globulin Ratio (1.1-2.2) Lipase (11-82) Units/L Urine Color Yellow (Yellow) Urine Clarity Cloudy A (Clear) Urine pH 6.0 (5.0-8.0) pH Units Ur Specific [place] 1.029 H (1.010-1.025) Urine Protein Trace (Neg-Trace) mg/dL Urine Glucose (UA) Normal (Normal) mg/dL Urine Ketones Trace H (Negative) mg/dL Urine Blood Negative (Negative) Urine Nitrite Positive A (Negative) Urine Bilirubin Negative (Negative) Urine Urobilinogen Normal (Normal) mg/dL Ur Leukocyte Esterase Small H (Negative) Urine Microscopic RBC 0-3 (0-3) per hpf Urine Microscopic WBC 15-30 H (0-3) per hpf Ur Squamous Epith Cells Many H (None-Few) per lpf Urine Bacteria Many H (None-Few) per hpf Hyaline Casts None Seen (None-Few) per lpf Ur Culture Indicated? NO. A (NO) Urine Test (Negative)
[2017-10-16 03:04] LABS: Bilirubin,Urine Negative (Negative); Blood,Urine Negative (Negative); Clarity,Urine Cloudy (Clear); Color,Urine Yellow (Yellow); Glucose,Urine (UA) Normal (Normal); Ketones,Urine Trace mg/dL (Negative); Leukocyte Esterase,Urine Small (Negative); Nitrite,Urine Positive (Negative); Protein,Urine Trace mg/dL (Neg-Trace); Specific Gravity,Urine 1.029 (1.010-1.025); Urobilinogen,Urine Normal (Normal)
[2017-10-16 03:04] LABS: Basophils % 0.3 %; Eosinophils # 0.1 K/mcL (0.0-0.6); Eosinophils % 1.4 %; Hematocrit 40.1 % (35.3-44.9); Hemoglobin 13.4 g/dL (11.5-15.4); Immature Granulocytes % 0.4 % (0-4); Lymphocytes # 3.1 K/mcL (0.6-4.6); Lymphocytes % 32.6 %; Mean Corpuscular HGB Conc 33.4 g/dL (31.6-35.5); Mean Corpuscular Hemoglobin 31.8 pg (28.0-33.3); Mean Platelet Volume 8.9 fL (9.4-12.4); Monocytes # 0.5 K/mcL (0.0-1.3); Monocytes % 5.6 %; Neutrophils # 5.7 K/mcL (1.6-8.9); Platelet Count 291 K/mcL (140-400); Red Blood Count 4.22 M/mcL (3.82-4.97); Segmented Neutrophils % 59.7 %
[2017-10-16 03:06] LABS: Bacteria,Urine Many per hpf (None-Few); Hyaline Casts,Urine None Seen per lpf (None-Few); RBC,Urine 0-3 per hpf (0-3); Squamous Epithelial Cell,Urine Many per lpf (None-Few); WBC,Urine 15-30 per hpf (0-3)
[2017-10-16 03:33] LABS: Alanine Aminotransferase 46 Units/L (7-52); Albumin 3.9 g/dL (3.5-5.7); Albumin/Globulin Ratio 1.3 (1.1-2.2); Alkaline Phosphatase 83 Units/L (34-104); Aspartate Amino Transferase 138 Units/L (13-39); BUN/Creatinine Ratio 13 (6-26); Bilirubin,Indirect 0.3 mg/dL (0.0-1.2); Bilirubin,Total 0.3 mg/dL (0.3-1.0); Blood Urea Nitrogen 12 mg/dL (6-20); Calcium 9.2 mg/dL (8.6-10.3); Carbon Dioxide 30 mEq/L (23-29); Chloride 105 mEq/L (98-107); Globulin 2.9 g/dL (2.4-3.5); Glucose 100 mg/dL (70-105); Osmolality,Calculated 288 (280-300); Potassium 4.4 mEq/L (3.5-5.1); Sodium 139 mEq/L (136-145); Total Protein 6.8 g/dL (6.4-8.9); eGFR For African Americans > 60 (> 60); eGFR For Non-African Americans > 60 (> 60)
[2017-10-16 03:38] LABS: Lipase > 1800 Units/L (11-82)
[2017-10-16] MEDS ORDERED: 0.9 % Sodium Chloride 1,000 ML IVC ONE (03:49)
--- NOTE | 2017-10-16 04:09 | Emergency Department Note ---
Disposition Clinical Impression: Pancreatitis, Elevated lipase, UTI (urinary tract infection), Abdominal pain Disposition: Admitted As Inpatient Condition: Good Referrals: NONE,PCP [Primary Care Provider] - Forms: ED Satisfaction Letter, Work/School Release General Adult HPI - General Chief complaint: ED Abdominal Pain Stated complaint: "Abd Pain/Hx of Gallbladder Issues" Time Seen by Provider: 10/16/17 02:17 Source: patient, family Mode of arrival: ambulatory Limitations: no limitations Nursing Notes Reviewed: Yes Vital Signs Reviewed: Yes - History of Present Illness Pain Scale: 7 - Related Data Home Medications Medication Instructions Recorded Confirmed Abilify mg PO DAILY 06/11/17 Buspirone HCl [Buspar] 10 mg PO DAILY 06/11/17 06/11/17 HydrOXYzine Pamoate [Vistaril] 50 mg PO TID PRN 06/11/17 06/11/17 Venlafaxine HCl [Effexor Xr] 225 mg PO DAILY 06/11/17 06/11/17 Previous Rx's Medication Instructions Recorded TraZODone 50 mg PO HS PRN #30 tablet 11/06/15 Allergies Allergy/AdvReac Type Severity Reaction Status Date / Time diphenhydramine Allergy Hives Verified 11/03/15 18:23 [From Benadryl] Constitutional: Denies: fever, chills Cardiovascular: Denies: chest pain Respiratory: Denies: dyspnea Gastrointestinal: Reports: abdominal pain. 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 - Social History Smoking Status: Current every day smoker Smokeless Tobacco Status: No Alcohol use: Reports: occasionally Drug use: Reports: marijuana, prescription drug abuse Physical Exam - General Limitations: no limitations General appearance: alert, in no apparent distress Course Vital Signs Temperature 97.4 F L 10/16/17 02:03 Pulse Rate 69 10/16/17 02:03 Respiratory Rate 20 10/16/17 02:03 Blood Pressure 130/75 10/16/17 02:03 O2 Sat by Pulse Oximetry 96 10/16/17 02:03 Temperature 97.4 F L 10/16/17 03:28 Pulse Rate 96 10/16/17 05:21 Respiratory Rate 18 10/16/17 05:21 Blood Pressure 99/61 10/16/17 05:21 O2 Sat by Pulse Oximetry 97 10/16/17 05:21 Oxygen Delivery Oxygen Delivery Room Air Medical Decision Making - Lab Data Result diagrams: 10/16/17 02:35 10/16/17 02:35 Lab Results 10/16/17 10/16/17 10/16/17 Range/Units 02:35 02:35 02:44 WBC 9.6 (4.3-11.1) K/mcL RBC 4.22 (3.82-4.97) M/mcL Hgb 13.4 (11.5-15.4) g/dL Hct 40.1 (35.3-44.9) % MCV 95.0 (83.0-100.0) fL MCH 31.8 (28.0-33.3) pg MCHC 33.4 (31.6-35.5) g/dL RDW 13.0 (11.5-14.5) % Plt Count 291 (140-400) K/mcL MPV 8.9 L (9.4-12.4) fL Immature Gran % 0.4 (0-4) % Seg Neutrophils % 59.7 % Lymphocytes % 32.6 % Monocytes % 5.6 % Eosinophils % 1.4 % Basophils % 0.3 % Neutrophils # 5.7 (1.6-8.9) K/mcL Lymphocytes # 3.1 (0.6-4.6) K/mcL Monocytes # 0.5 (0.0-1.3) K/mcL Eosinophils # 0.1 (0.0-0.6) K/mcL Basophils # 0.0 (0.0-0.2) K/mcL Sodium 139 (136-145) mEq/L Potassium 4.4 (3.5-5.1) mEq/L Chloride 105 (98-107) mEq/L Carbon Dioxide 30 H (23-29) mEq/L BUN 12 (6-20) mg/dL Creatinine 0.94 (0.60-1.20) mg/dL Est GFR ( Amer) > 60 (> 60) Est GFR (Non-Af Amer) > 60 (> 60) BUN/Creatinine Ratio 13 (6-26) Glucose 100 (70-105) mg/dL Calculated Osmolality 288 (280-300) Calcium 9.2 (8.6-10.3) mg/dL Total Bilirubin 0.3 (0.3-1.0) mg/dL Direct Bilirubin 0.0 (0.0-0.2) mg/dL Indirect Bilirubin 0.3 (0.0-1.2) mg/dL AST 138 H (13-39) Units/L ALT 46 (7-52) Units/L Alkaline Phosphatase 83 (34-104) Units/L Serum Total Protein 6.8 (6.4-8.9) g/dL Albumin 3.9 (3.5-5.7) g/dL Globulin 2.9 (2.4-3.5) g/dL Albumin/Globulin Ratio 1.3 (1.1-2.2) Lipase > 1800 H (11-82) Units/L Urine Color (Yellow) Urine Clarity (Clear) Urine pH (5.0-8.0) pH Units Ur Specific [place] (1.010-1.025) Urine Protein (Neg-Trace) mg/dL Urine Glucose (UA) (Normal) mg/dL Urine Ketones (Negative) mg/dL Urine Blood (Negative) Urine Nitrite (Negative) Urine Bilirubin (Negative) Urine Urobilinogen (Normal) mg/dL Ur Leukocyte Esterase (Negative) Urine Microscopic RBC (0-3) per hpf Urine Microscopic WBC (0-3) per hpf Ur Squamous Epith Cells (None-Few) per lpf Urine Bacteria (None-Few) per hpf Hyaline Casts (None-Few) per lpf Ur Culture Indicated? (NO) Urine Test Negative (Negative) 10/16/17 Range/Units 02:44 WBC (4.3-11.1) K/mcL RBC (3.82-4.97) M/mcL Hgb (11.5-15.4) g/dL Hct (35.3-44.9) % MCV (83.0-100.0) fL MCH (28.0-33.3) pg MCHC (31.6-35.5) g/dL RDW (11.5-14.5) % Plt Count (140-400) K/mcL MPV (9.4-12.4) fL Immature Gran % (0-4) % Seg Neutrophils % % Lymphocytes % % Monocytes % % Eosinophils % % Basophils % % Neutrophils # (1.6-8.9) K/mcL Lymphocytes # (0.6-4.6) K/mcL Monocytes # (0.0-1.3) K/mcL Eosinophils # (0.0-0.6) K/mcL Basophils # (0.0-0.2) K/mcL Sodium (136-145) mEq/L Potassium (3.5-5.1) mEq/L Chloride (98-107) mEq/L Carbon Dioxide (23-29) mEq/L BUN (6-20) mg/dL Creatinine (0.60-1.20) mg/dL Est GFR ( Amer) (> 60) Est GFR (Non-Af Amer) (> 60) BUN/Creatinine Ratio (6-26) Glucose (70-105) mg/dL Calculated Osmolality (280-300) Calcium (8.6-10.3) mg/dL Total Bilirubin (0.3-1.0) mg/dL Direct Bilirubin (0.0-0.2) mg/dL Indirect Bilirubin (0.0-1.2) mg/dL AST (13-39) Units/L ALT (7-52) Units/L Alkaline Phosphatase (34-104) Units/L Serum Total Protein (6.4-8.9) g/dL Albumin (3.5-5.7) g/dL Globulin (2.4-3.5) g/dL Albumin/Globulin Ratio (1.1-2.2) Lipase (11-82) Units/L Urine Color Yellow (Yellow) Urine Clarity Cloudy A (Clear) Urine pH 6.0 (5.0-8.0) pH Units Ur Specific [place] 1.029 H (1.010-1.025) Urine Protein Trace (Neg-Trace) mg/dL Urine Glucose (UA) Normal (Normal) mg/dL Urine Ketones Trace H (Negative) mg/dL Urine Blood Negative (Negative) Urine Nitrite Positive A (Negative) Urine Bilirubin Negative (Negative) Urine Urobilinogen Normal (Normal) mg/dL Ur Leukocyte Esterase Small H (Negative) Urine Microscopic RBC 0-3 (0-3) per hpf Urine Microscopic WBC 15-30 H (0-3) per hpf Ur Squamous Epith Cells Many H (None-Few) per lpf Urine Bacteria Many H (None-Few) per hpf Hyaline Casts None Seen (None-Few) per lpf Ur Culture Indicated? NO. A (NO) Urine Test (Negative) Attestation Statement - Attestation Attestation: I, Chauncey Collazo MD, personally evaluated this patient and discussed their management with the resident physician. I reviewed the resident's note and agree with the documented findings, medical decision making, and plan of care. 26-year-old female presents to the emergency department with a complaint of awakening from sleep about 1 AM with severe epigastric abdominal pain. Patient rates the pain a 6 out of 10. No back pain. No radiation of the pain. She denies nausea or vomiting. No diarrhea. She was diaphoretic with the pain. No melena, hematemesis, or hematochezia. No fever. No urinary symptoms. Patient does have a prior history of pancreatitis about 4 months ago with similar symptoms. On examination patient is a well-developed well-nourished well-appearing female in no acute distress. She is alert and oriented 3. There is no cyanosis or diaphoresis. Breath sounds are clear and equal bilaterally. Heart regular rate and rhythm. Abdomen is soft with normal bowel sounds. There is mild midepigastric tenderness with no guarding or rebound tenderness. No CVA tenderness. Labs reviewed. Lipase greater than 1800. UTI noted. CT of the abdomen and pelvis shows no acute abnormality within the abdomen or pelvis. The hospitalist, Dr. Gill, was consulted and accepted admission of the patient.
[2017-10-16] MEDS ORDERED: cefTRIAXone 1,000 MG in Water for inj. (sterile) 20 ML 10 ML IVP ONE (05:26)
[2017-10-16] MEDS ORDERED: OXYCODONE Oral CONC 10 MG/0.5 ML ORAL.SYG SL PRN (06:03)
[2017-10-16] MEDS ORDERED: Naloxone 0.4 MG/ML INJ IVP PRN (06:03)
[2017-10-16] MEDS ORDERED: Ondansetron 4 MG/2 ML VIAL IVP PRN (06:03)
--- NOTE | 2017-10-16 06:24 | Internal Med History&Physical ---
Date of Encounter: 10/16/17 Time of Encounter: 05:00 Internal Medicine - H&P: HPI Chief complaint: Abdominal pain History of present illness: Ms. Bird is a 26 year old female present to ER for abdominal pain. Past medical history is significant for gallstone, pancreatitis, depression. Patient had sudden onset of abdominal pain since 1:00 in the morning. The pain located on our part abdomen, sharp, 6-7 out of 10, no radiation. Patient denies nausea, vomiting, or diarrhea. Patient has chills but no fever. In the emergency room, lab shows lipase over 1800. Abdominal CT has been done, unremarkable. Patient admitted as acute pancreatitis. patient also complaining of increased urgency on urination, he UA shows UTI. Rocephin was started by ER. Past Med Surg Social Fam HX - Past Medical History Medical history: no medical history Psychiatric history: depression, previous psychiatric hospitalization - Past Surgical History Surgical History: other (tubal ligation) - Social History Smoking Status: Current every day smoker Smokeless Tobacco Status: No Alcohol use: occasionally Drug use: marijuana, prescription drug abuse - Family History Mother History Unknown: Yes Internal Medicine - H&P: Meds TraZODone 50 mg PO HS PRN #30 tablet 11/06/15 [Rx] Abilify mg PO DAILY 06/11/17 [History] Buspirone HCl [Buspar] 10 mg PO DAILY 06/11/17 [History] HydrOXYzine Pamoate [Vistaril] 50 mg PO TID PRN 06/11/17 [History] Venlafaxine HCl [Effexor Xr] 225 mg PO DAILY 06/11/17 [History] 3 Allergy/AdvReac Type Severity Reaction Status Date / Time diphenhydramine Allergy Hives Verified 11/03/15 18:23 [From Benadryl] All Systems PM: A 10-system review of systems was performed and is negative for pertinent findings except as documented above in the HPI. - Constitutional Vitals: Temp Pulse Resp BP Pulse Ox 97.4 F L 96 18 99/61 97 10/16/17 03:28 10/16/17 05:21 10/16/17 05:21 10/16/17 05:21 10/16/17 05:21 General appearance: Present: A&O X 3, no acute distress, answers questions appropriately - Head Head exam: Present: atraumatic, normocephalic - Eye Eye exam: Present: PERRL, conjuntiva pink, sclera anicteric Pupils: Present: PERRL - Neck Neck exam general surgery: Present: supple, trachea midline. Absent: lymphadenopathy - Respiratory Respiratory exam: Present: CTAB. Absent: accessory muscle use, rales, rhonchi, wheezes - Cardiovascular Cardiovascular exam: Present: RRR, +S1, +S2. Absent: diastolic murmur, gallop, rubs, systolic murmur - GI/Abdominal GI/Abdominal exam: Present: normal bowel sounds, soft, no peritoneal signs. Absent: distended, tenderness - Extremities Exam Extremities exam: Present: warm, radial pulses palpable and symmetrical. Absent : calf tenderness, cyanotic, pedal edema - Neurological Exam Neurological exam: Present: CN II-XII intact, oriented X3, no focal deficits. Absent: pronater drift, facial droop, speech deficit - Skin Skin exam: Present: dry, intact Internal Med - H&P Results - Labs CBC & Chem 7: 10/16/17 02:35 10/16/17 02:35 Labs: Short CBC 10/16/17 Range/Units 02:35 WBC 9.6 (4.3-11.1) K/mcL Hgb 13.4 (11.5-15.4) g/dL Hct 40.1 (35.3-44.9) % Plt Count 291 (140-400) K/mcL Neutrophils # 5.7 (1.6-8.9) K/mcL BMP 10/16/17 02:35 Sodium 139 Potassium 4.4 Chloride 105 Carbon Dioxide 30 H BUN 12 Creatinine 0.94 Glucose 100 Calcium 9.2 Liver Function 10/16/17 Range/Units 02:35 Total Bilirubin 0.3 (0.3-1.0) mg/dL Direct Bilirubin 0.0 (0.0-0.2) mg/dL AST 138 H (13-39) Units/L ALT 46 (7-52) Units/L Alkaline Phosphatase 83 (34-104) Units/L Albumin 3.9 (3.5-5.7) g/dL Urine 10/16/17 Range/Units 02:44 Urine Color Yellow (Yellow) Urine Clarity Cloudy A (Clear) Urine pH 6.0 (5.0-8.0) pH Units Ur Specific [place] 1.029 H (1.010-1.025) Urine Protein Trace (Neg-Trace) mg/dL Urine Glucose (UA) Normal (Normal) mg/dL - Impressions ITS Impressions Abdomen/Pelvis CT 10/16/17 02:27 IMPRESSION: 1. No acute findings identified in the abdomen and pelvis 2. 1 cm round low-density lesion in the midline pelvis. Correlate for possible urethral diverticulum. D/ / Shahram Rivera MD / Shahram Rivera MD Interpreting Provider: Shahram Rivera MD - Assessment and plan (1) Pancreatitis Current Visit: Yes Status: Acute Assessment and plan: Patient has abdominal pain with elevated lipase. Bilirubin is normal. AST is mild elevated. Patient has history of pancreatitis and gallstone. Consider acute pancreatitis. - Keep patient nothing by mouth, IV fluid, pain medication - Follow up lipase - US liver to evaluate gallstone. - Patient has been following up with surgery already and has scheduled to have cholecystectomy. Continue follow-up with surgery for possible cholecystectomy after acute pancreatitis is resolved Qualifiers: Chronicity: acute Pancreatitis type: biliary Acute pancreatitis complication: no infection or necrosis Qualified Code(s): K85.10 - Biliary acute pancreatitis without necrosis or infection (2) UTI (urinary tract infection) Current Visit: Yes Status: Acute Assessment and plan: Continue Rocephin IV at this point. Follow-up urine culture. Qualifiers: Urinary tract infection type: site unspecified Hematuria presence: without hematuria Qualified Code(s): N39.0 - Urinary tract infection, site not specified (3) DVT prophylaxis Current Visit: No Status: Acute Assessment and plan: Patient is young and ambulating well, no anticoagulation placed. (4) MDD (major depressive disorder), recurrent episode, severe Current Visit: No Status: Acute Assessment and plan: Hold by mouth medications at this point temporarily, will resume after patient started to have diet Qualifiers: Psychotic features: without psychotic features Qualified Code(s): F33.2 - Major depressive disorder, recurrent severe without psychotic features - Time Spent With Patient Total time spent is greater than 50% in coordination of care (as documented) at patient's floor/unit and/or counseling patient: 40 minutes Greater than 35 minutes
[2017-10-16] MEDS: Nicotine 7 MG PATCH.TD24 TD SCH (10:16)
[2017-10-16] MEDS: 0.9 % Sodium Chloride 1,000 ML IVC SCH (14:57)
--- NOTE | 2017-10-16 18:10 | Event Note ---
Date of Encounter: 10/16/17 Time of Encounter: 16:00 Patient seen and evaluated by nocturnalist earlier this morning and also by myself Patient with acute on chronic pancreatitis found to have cholelithiasis on imaging She is to remain nothing by mouth with IV fluid resuscitation Surgery consulted
[2017-10-16] MEDS: OXYCODONE Oral CONC 10 MG/0.5 ML ORAL.SYG SL PRN (20:26)
[2017-10-17] MEDS ORDERED: 0.9 % Sodium Chloride 1,000 ML ONE (04:40)
[2017-10-17] MEDS: 0.9 % Sodium Chloride 1,000 ML IVC SCH (04:44)
[2017-10-17] MEDS: OXYCODONE Oral CONC 10 MG/0.5 ML ORAL.SYG SL PRN (06:33)
[2017-10-17] MEDS ORDERED: cefTRIAXone 1,000 MG in Water for inj. (sterile) 20 ML 10 ML IVPB SCH (07:00)
[2017-10-17] MEDS: Nicotine 7 MG PATCH.TD24 TD SCH (07:40)
[2017-10-17 07:54] LABS: Basophils % 0.6 %; Eosinophils # 0.2 K/mcL (0.0-0.6); Eosinophils % 2.9 %; Hematocrit 37.8 % (35.3-44.9); Hemoglobin 12.6 g/dL (11.5-15.4); Immature Granulocytes % 0.2 % (0-4); Lymphocytes # 3.1 K/mcL (0.6-4.6); Lymphocytes % 59.8 %; Mean Corpuscular HGB Conc 33.3 g/dL (31.6-35.5); Mean Corpuscular Hemoglobin 31.6 pg (28.0-33.3); Mean Corpuscular Volume 94.7 fL (83.0-100.0); Mean Platelet Volume 9.2 fL (9.4-12.4); Monocytes # 0.3 K/mcL (0.0-1.3); Monocytes % 6.2 %; Neutrophils # 1.6 K/mcL (1.6-8.9); Platelet Count 289 K/mcL (140-400); Red Blood Count 3.99 M/mcL (3.82-4.97); Red Cell Distribution Width 13.2 % (11.5-14.5); Segmented Neutrophils % 30.3 %
[2017-10-17 08:06] LABS: BUN/Creatinine Ratio 11 (6-26); Blood Urea Nitrogen 6 mg/dL (6-20); Calcium 8.3 mg/dL (8.6-10.3); Carbon Dioxide 24 mEq/L (23-29); Chloride 108 mEq/L (98-107); Chol/HDL Ratio 2.2 (0-4.9); Cholesterol 146 mg/dL (< 200); Glucose 84 mg/dL (70-105); HDL Cholesterol 66 mg/dL (40-59); LDL Cholesterol,Calculated 58 mg/dL (0-99); Lipase 26 Units/L (11-82); Osmolality,Calculated 285 (280-300); Potassium 3.7 mEq/L (3.5-5.1); Sodium 139 mEq/L (136-145); Triglycerides 108 mg/dL (< 150); eGFR For African Americans > 60 (> 60); eGFR For Non-African Americans > 60 (> 60)
--- NOTE | 2017-10-17 10:15 | Internal Med Progress Note ---
Date of Encounter: 10/17/17 Time of Encounter: 10:15 - Assessment and plan (1) Pancreatitis Current Visit: Yes Status: Acute Assessment and plan: Patient has abdominal pain with elevated lipase. Bilirubin is normal. AST is mild elevated. Patient has history of pancreatitis and gallstone. Consider acute pancreatitis. Lipase levated at 1800 on admission. Continue IV fluids, NPO. Surgery to assess for gallstone pancreatitis Qualifiers: Chronicity: acute Pancreatitis type: unspecified pancreatitis type Acute pancreatitis complication: no infection or necrosis Qualified Code(s): K85.90 - Acute pancreatitis without necrosis or infection, unspecified (2) Gallstone Current Visit: Yes Status: Acute Assessment and plan: Ultrasound shows numerous gallstones. To be assessed by surgery Qualifiers: Qualified Code(s): K80.20 - Calculus of gallbladder without cholecystitis without obstruction (3) MDD (major depressive disorder), recurrent episode, severe Current Visit: No Status: Acute Assessment and plan: Hold by mouth medications at this point temporarily, will resume after patient started to have diet Qualifiers: Psychotic features: without psychotic features Qualified Code(s): F33.2 - Major depressive disorder, recurrent severe without psychotic features (4) UTI (urinary tract infection) Current Visit: Yes Status: Acute Assessment and plan: Continue Rocephin IV at this point. Follow-up urine culture. Qualifiers: Urinary tract infection type: site unspecified Hematuria presence: without hematuria Qualified Code(s): N39.0 - Urinary tract infection, site not specified (5) DVT prophylaxis Current Visit: No Status: Acute Assessment and plan: Patient is young and ambulating well, no anticoagulation placed. - Time Spent With Patient Total time spent is greater than 50% in coordination of care (as documented) at patient's floor/unit and/or counseling patient: - Subjective Interval history: No acute events overnight. Says her pain has improved this am - Constitutional Vitals: Temp Pulse Resp BP Pulse Ox 98.1 F 58 16 107/67 98 10/17/17 07:57 10/17/17 07:57 10/17/17 07:57 10/17/17 07:57 10/17/17 07:57 General appearance: Present: A&O X 3, no acute distress, answers questions appropriately - Head Head exam: Present: atraumatic, normocephalic - Eye Eye exam: Present: PERRL, conjuntiva pink, sclera anicteric Pupils: Present: PERRL - Neck Neck exam general surgery: Present: supple, trachea midline. Absent: lymphadenopathy - Respiratory Respiratory exam: Present: CTAB. Absent: accessory muscle use, rales, rhonchi, wheezes - Cardiovascular Cardiovascular exam: Present: RRR, +S1, +S2. Absent: diastolic murmur, gallop, rubs, systolic murmur - GI/Abdominal GI/Abdominal exam: Present: normal bowel sounds, soft, no peritoneal signs. Absent: distended, tenderness - Extremities Exam Extremities exam: Present: warm, radial pulses palpable and symmetrical. Absent : calf tenderness, cyanotic, pedal edema - Neurological Exam Neurological exam: Present: CN II-XII intact, oriented X3, no focal deficits. Absent: pronater drift, facial droop, speech deficit - Skin Skin exam: Present: dry, intact Internal Medicine: Result - Labs CBC & Chem 7: 10/17/17 06:38 10/17/17 06:38 Labs: Short CBC 10/17/17 Range/Units 06:38 WBC 5.1 (4.3-11.1) K/mcL Hgb 12.6 (11.5-15.4) g/dL Hct 37.8 (35.3-44.9) % Plt Count 289 (140-400) K/mcL Neutrophils # 1.6 (1.6-8.9) K/mcL BMP 10/17/17 06:38 Sodium 139 Potassium 3.7 Chloride 108 H Carbon Dioxide 24 BUN 6 Creatinine 0.56 L Glucose 84 Calcium 8.3 L - Impressions Impressions Liver Ultrasound 10/16/17 11:00 IMPRESSION: Gallbladder is diffusely filled with shadowing gallstones. Gallbladder wall thickness is favored to be within normal limits (falsely increased due to contraction and/ or adjacent gallstones along the wall). No hyperemia, pericholecystic fluid or sonographic Jones's sign is suggest cholecystitis. No bile duct dilatation. D/ / Adam Randall / Adam Randall Interpreting Provider: Adam Randall Consult Discharge Plan - Plan Referrals: NONE,PCP [Primary Care Provider] -
--- NOTE | 2017-10-17 12:53 | Anesthesia Evaluation PreOp ---
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 History: Other (anxiety, previous hospitalization for psychiatric problems) Other Medical History: Denies Any Significant HX, Other (hx of prescription drug abuse) Anesthesia History: No Prior Anesthetic Complications, Past Anesthesia (tubal ligation) Test: Negative (10/16/17) Alcohol Use: occasionally Drug use: marijuana, methamphetamine, prescription drug abuse Medications and Allergies ARIPiprazole [Abilify] 10 mg PO DAILY #0 06/11/17 [History] Venlafaxine HCl [Effexor Xr] 225 mg PO DAILY 06/11/17 [History] 3 Allergy/AdvReac Type Severity Reaction Status Date / Time diphenhydramine Allergy Hives Verified 11/03/15 18:23 [From Benadryl] - Meds/Allergy Pre-op Review Medications Reviewed: Yes Allergies Reviewed: Yes Beta Blockers on Current Med List: No Anesthesia Results - Labs 10/17/17 06:38 10/17/17 06:38 Anesthesia Exam Vital Signs/O2 Sat, Most Current Temp Pulse Resp BP Pulse Ox 98.1 F 64 16 104/69 98 10/17/17 12:30 10/17/17 12:30 10/17/17 12:30 10/17/17 12:30 10/17/17 12:30 Height: 1.55m Weight: 68kg NPO (# of Hours): >8 - HEENT Pupil (Motor): Pupils equal, EOMI Mallampati: I Teeth: Normal Oral Opening: Greater than 3 - MAINTENANCE SHOP WELDER LOC: Oriented MAINTENANCE SHOP WELDER Motor: Normal RUE, Normal LUE, Normal RLE, Normal LLE, Normal Face MAINTENANCE SHOP WELDER Sensory: Normal: RUE, LUE, RLE, LLE, Face - Cardiac Rhythm: Regular - Pulmonary Breath Sounds: bilateral Clear Respiratory Effort: Symmetrical Anesthesia Assess/Plan ASA Score: 2 Modified [place] Scale for Level of Consciousness: Cooperative, oriented, and tranquil Anesthetic Plan: General Monitoring Plan: Standard Monitors Recovery Plan: PACU
[2017-10-17] MEDS ORDERED: Lidocaine -MPF 2% 2 ML VIAL ONE (12:55)
[2017-10-17] MEDS ORDERED: *HR* Rocuronium Bromide 50 MG/5 ML VIAL ONE (12:55)
[2017-10-17] MEDS ORDERED: *HR* FentaNYL (PF) 100 MCG/2 ML VIAL ONE ×2 (12:55→15:10)
[2017-10-17] MEDS ORDERED: Ondansetron 4 MG/2 ML VIAL ONE (12:55)
[2017-10-17] MEDS ORDERED: *HR* Propofol 200 MG/20 ML VIAL IVP ONE (12:56)
[2017-10-17] MEDS ORDERED: *HR* Midazolam HCl 5 MG/5 ML VIAL IVP ONE (12:57)
[2017-10-17] MEDS ORDERED: Lidocaine -MPF 4% 5 ML AMPUL ONE (12:58)
[2017-10-17] MEDS ORDERED: Dexamethasone 4 MG/ML VIAL ONE (12:58)
--- NOTE | 2017-10-17 13:27 | General Surgery Consult Note ---
Date of Encounter: 10/17/17 Time of Encounter: 13:23 Assessment and Plan (1) Gallstone pancreatitis Current Visit: Yes Status: Acute 26F with gallstone pancreatitis; NPO IVF abx plan for [facility] today; History of Present Illness Consult date: 10/17/17 Reason for consult: abdominal pain History of present illness: 26F no significant comorbidities with know gallstones and prior history of gallstone pancreatitis who presents with repeat episode of gallstone pancreatitis. She came in with a lipase > 1000 and significant abdominal pain localized to the epigastric region. Pain rated at 6-7 out of 10, no radiation. Patient denies nausea, vomiting, or diarrhea. Patient has chills but no fever. Surgery was consulted for further management recommendations. Past Med Surg Social Fam HX - Past Medical History Medical history: no medical history Psychiatric history: depression, previous psychiatric hospitalization - Past Surgical History Surgical History: other - Social History Smoking Status: Current every day smoker Packs per day: 1 Smokeless Tobacco Status: No Alcohol use: occasionally Drug use: marijuana, methamphetamine, prescription drug abuse - Family History Mother History Unknown: Yes Adopted: No Living Status: Still Living Hx Family Cardiac Disorders: Yes (has leaky heart valve, extent and valve unknown) Hx Family Respiratory Disorders: No Hx Family Cancer: No Hx Family GI Disorders: No Hx Family Genitourinary Disorders: No Hx Family Endocrine Disorder: No Hx Family Musculoskeletal Disorders: Yes (Ms) Medications and Allergies ARIPiprazole [Abilify] 10 mg PO DAILY #0 06/11/17 [History] Venlafaxine HCl [Effexor Xr] 225 mg PO DAILY 06/11/17 [History] 3 Allergy/AdvReac Type Severity Reaction Status Date / Time diphenhydramine Allergy Hives Verified 11/03/15 18:23 [From Benadryl] Review of Systems All systems PM: The remainder of the systems were reviewed and are negative General Surgery Exam Initial Vital Signs Temp Pulse Resp BP Pulse Ox 97.4 F L 69 20 130/75 96 10/16/17 02:03 10/16/17 02:03 10/16/17 02:03 10/16/17 02:03 10/16/17 02:03 - General physical appearance well developed, no distress - Eyes other (no scleral icterus), normal ocular movement - ENT normocephalic - Neck no lymphadectomy - Respiratory normal expansion, normal respiratory effort - Cardiovascular Cardiovascular exam: Present: RRR - Abdomen Abdomen general surgery: Present: soft, non tender - Integumentary Integumentary general surgery: Present: warm and dry - Neurologic Present: CN 2-12 grossly intact - Musculoskeletal Present: normal posture - Psychiatric Psychiatric general surgery: Present: A&Ox3 Exam Initial Vital Signs Temp Pulse Resp BP Pulse Ox 97.4 F L 69 20 130/75 96 10/16/17 02:03 10/16/17 02:03 10/16/17 02:03 10/16/17 02:03 10/16/17 02:03 Results - Labs 10/17/17 06:38 10/17/17 06:38 Abnormal lab results MPV 9.2 fL (9.4-12.4) L 10/17/17 06:38 Nucleated RBCs/100 WBC 1.0 /100 WBC (0) H 10/17/17 06:38 Chloride 108 mEq/L (98-107) H 10/17/17 06:38 Creatinine 0.56 mg/dL (0.60-1.20) L 10/17/17 06:38 Calcium 8.3 mg/dL (8.6-10.3) L 10/17/17 06:38 AST 138 Units/L (13-39) H 10/16/17 02:35 HDL Cholesterol 66 mg/dL (40-59) H 10/17/17 06:38 Urine Clarity Cloudy (Clear) A 10/16/17 02:44 Ur Specific [place] 1.029 (1.010-1.025) H 10/16/17 02:44 Urine Ketones Trace mg/dL (Negative) H 10/16/17 02:44 Urine Nitrite Positive (Negative) A 10/16/17 02:44 Ur Leukocyte Esterase Small (Negative) H 10/16/17 02:44 Urine Microscopic WBC 15-30 per hpf (0-3) H 10/16/17 02:44 Ur Squamous Epith Cells Many per lpf (None-Few) H 10/16/17 02:44 Urine Bacteria Many per hpf (None-Few) H 10/16/17 02:44 Ur Culture Indicated? NO. (NO) A 10/16/17 02:44 All other labs normal. - Imaging US - abdomen: report reviewed, image reviewed (all pertinent images evaluated and interpreted by me in coordination with radiology reads) Consult Discharge Plan - Plan Referrals: NONE,PCP [Primary Care Provider] -
[2017-10-17] MEDS ORDERED: Acetaminophen IV 1,000 MG/100 ML INFUS..BTL ONE (14:09)
[2017-10-17] MEDS ORDERED: *HR* Vasopressin 20 UNIT/ML VIAL ONE (14:22)
[2017-10-17] MEDS ORDERED: *HR* Promethazine 25 MG/ML VIAL IVP PRN ×2 (14:25→18:25)
[2017-10-17] MEDS ORDERED: *HR* FentaNYL (PF) 100 MCG/2 ML VIAL IVP PRN (14:25)
[2017-10-17] MEDS ORDERED: *HR* Meperidine 25 MG/ML SYRINGE IVP PRN (14:25)
[2017-10-17] MEDS ORDERED: *HR* OxyCODONE Immed Rel 5 MG TABLET PO PRN (14:25)
[2017-10-17] MEDS ORDERED: Ondansetron 4 MG/2 ML VIAL IVP ONE (14:25)
[2017-10-17] MEDS ORDERED: Ringers Solution, Lactated 1,000 ML IVC SCH (14:30)
[2017-10-17] MEDS ORDERED: Neostigmine Methylsulfate 3 MG/3 ML SYRINGE ONE (16:07)
--- NOTE | 2017-10-17 17:32 | Anesthesia Evaluation Post Op ---
Date of Encounter: 10/17/17 Time of Encounter: 17:30 - Vital Signs Vital Signs: O2 Sat Vital Signs/O2 Sat, Most Current Temp Pulse Resp BP Pulse Ox 98 F 76 16 115/68 96 10/17/17 17:24 10/17/17 17:24 10/17/17 17:24 10/17/17 17:24 10/17/17 17:24 - Lungs Lungs: Clear Ascult./Percussion - Airway Airway: Non-obstructed - Cardiovascular Regular Rate - Mental Status Mental Status: Alert & Oriented, Answers Appropriately - Pain Pain Scale: 0 Pain Scale used: Numeric (1 - 10) - Nausea Vomiting Nausea Vomiting: Not Present - Hydration Hydration: Tolerates oral liquids, Able to void - Discharge PostOp Status: Transfer Patient to floor
[2017-10-17] MEDS ORDERED: OXYCODONE Oral CONC 10 MG/0.5 ML ORAL.SYG SL PRN ×2 (18:25)
[2017-10-17] MEDS ORDERED: Ondansetron 4 MG/2 ML VIAL IVP PRN (18:25)
[2017-10-17] MEDS ORDERED: Naloxone 0.4 MG/ML INJ IVP PRN (18:25)
--- NOTE | 2017-10-17 18:27 | Operative Note ---
Date of procedure: 10/17/17 Pre-op diagnosis: gallstone pancreatitis Post-op diagnosis: same Procedure: robotic cholecystectomy with intraoperative cholangiogram Implants: none Complications: none Anesthesia: GETA Local Anesthetics: 0.5% Sensorcaine HCL SubQ (cc) Surgeon: Lui Houser Was there an real estate administrative assistant present: No Compound Specialist Other: David Ochoa Estimated blood loss (cc): 10 Specimen: gallbladder and contents Condition: stable Disposition: PACU Procedure in Detail: The patient was brought into the operating room suite and was placed in the supine position. Mechanical DVT prophylaxis was applied. A time-in was conducted. I injected 2cc of ICG. The patient underwent smooth induction of anesthesia. Preoperative antibiotics were given. The patient was prepped and draped in the usual fashion. A time-out was held identifying the correct patient, pathology, and procedure. Everyone was in agreement and we began the procedure. Incision to Dissection I started by creating a 12mm supraumbilical incision. Via open Kadie technique I did enter into the abdomen. I inserted the 12mm trocar followed by the 30 degree camera, ensured that I did not cause intraabdominal injury upon entry, and quickly identified the gallbladder. I created a 5mm incisions one handbreadth to the left and right of the umbilical incision and an real estate administrative assistant port along the R anterior axillary line. Of note, it should be stated that i did have exceptional difficulty getting into the abdomen because her abdominal wall was especially challening to get through; I then docked the robot in the usual fashion. Using laparoscopic graspers I managed to elevate the gallbladder above the liver. At the Console I grasp the edge of the gallbladder to retract laterally. Using the Caudier grasper instrument as well as the hook-electrocautery, I dissected out the cystic duct and the cystic artery. I excised the posterior tissue to visualize the liver. I was able to clearly visualize the critical view of safety. Using the Firefly function, I was able to utilize it to identify the common bile duct , thereby serving as a cholangiogram. Critical view of Safety to Excison of the gallbladder I then clipped both structures using plastic clips, two on the stay side, one on the specimen side. Using robotic scissors, I cut between the clip on the specimen side and the first clip on the stay side. Then using tension and counter-tension, I used the electrocautery to excise the gallbladder off of the liver bed. Before complete excision, I evaluated the liver bed to ensure there 1.) there was no bleeding, 2. No excessive bile leakage, and 3.) to evaluate my clips. There was no bleeding, bile leakage, and the clips were all the way across both duct and artery. Removal of gallbladder to Closure After undocking the robot, I inserted the endocatch bag into the umbilical port. I placed the specimen into the bag and retrieved it through the umbilical port. i then irrgiated the liver bed and above the liver before suctioning both irrigation fluid and air. I removed the 5mm ports, turned off the insufllation, then removed the 12mm umbilical port. I then close the umbilical fascia a vicryl suture in a figure of 8 fashion. All incisions were closed with interrupted 4-0 monocryl and sealed with dermabond. The patient tolerated the procedure well and went back to PACU in stable condition.
[2017-10-17] MEDS ORDERED: D5% in 0.45% NACL w KCl 20 MEQ/1,000 ML MLS IVC SCH (18:30)
[2017-10-17 19:37] VITALS: BP 113/74
--- NOTE | 2017-10-17 22:58 | Event Note ---
Date of Encounter: 10/17/17 Time of Encounter: 22:46 Alerted by pts. nurse that the BRAKE REPAIR SUPERVISOR went to check on pt. and the pt. was not in the room and could not be found. Nurse called pts. phone and pt. told her that she had left because her call light was on too long and she didn't like the food. Pt. had a lap roslyn procedure today and left w/IV access in her arm. Discussed w/Balance Sheet Analyst and nurse will file incident report. Pt. did not sign AMA papers and left of her own free will and choice. Hospital personnel were not informed of her decision to leave by the pt. Nurse will notify surgeon.
[2017-10-18] MEDS ORDERED: ARIPiprazole 10 MG TABLET PO SCH (09:00)
[2017-10-18] MEDS ORDERED: Venlafaxine XR (24 HR) 75 MG CAP.ER.24H PO SCH (09:00)
[2017-10-18] MEDS ORDERED: Nicotine 7 MG PATCH.TD24 TD SCH (09:00)
--- NOTE | 2017-10-18 18:33 | Discharge Summary ---
Orders not resulted at time of discharge: Pending orders 10/17/17 16:16 Surgical Pathology [PTH] Routine Date of Encounter: 10/18/17 Time of Encounter: 20:00 - Discharge Diagnosis (1) Pancreatitis Priority: Primary Status: Acute Assessment and Plan: 26 year old female with pmh of pancreatitis presented with abdominal pain with elevated lipase. She was assessed with acute pancreatitis and kept NPO and started on IV fluids and pain control. Ultrasound showed multiple gallstones and surgery was consulted. She underwent a robotic cholecystectomy on 10/17 with no aute complications. Later that night , patient was reportedly not found to be in her room. Nursing staff called her phone and she reportedly said she had left the hospital because she didn't like the food and her call light was on too long. 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 Nurse will file an incident report Qualifiers: Chronicity: acute Pancreatitis type: unspecified pancreatitis type Acute pancreatitis complication: no infection or necrosis Qualified Code(s): K85.90 - Acute pancreatitis without necrosis or infection, unspecified (2) Gallstone Priority: Secondary Status: Acute Qualifiers: Cholecystitis presence: without cholecystitis Qualified Code(s): K80.20 - Calculus of gallbladder without cholecystitis without obstruction (3) MDD (major depressive disorder), recurrent episode, severe Priority: Secondary Status: Acute Qualifiers: Psychotic features: without psychotic features Qualified Code(s): F33.2 - Major depressive disorder, recurrent severe without psychotic features (4) UTI (urinary tract infection) Priority: Secondary Status: Acute Qualifiers: Urinary tract infection type: site unspecified Hematuria presence: without hematuria Qualified Code(s): N39.0 - Urinary tract infection, site not specified (5) DVT prophylaxis Priority: Secondary Status: Acute Hospital course: Ms. Bird is a 26 year old female - Time Spent with Patient Total time spent providing and/or coordinating discharge services: - Discharge Medications Home Medications: ARIPiprazole [Abilify] 10 mg PO DAILY #0 06/11/17 [History] Venlafaxine HCl [Effexor Xr] 225 mg PO DAILY 06/11/17 [History] Allergies/Adverse Reactions: 3 Allergy/AdvReac Type Severity Reaction Status Date / Time diphenhydramine Allergy Hives Verified 11/03/15 18:23 [From Benadryl] Date of admission: 10/17/17 12:20 Primary care physician: PCP NONE - Constitutional Vitals: Temp Pulse Resp BP Pulse Ox 97.9 F 60 16 113/74 95 10/17/17 19:36 10/17/17 19:36 10/17/17 19:36 10/17/17 19:36 10/17/17 19:36 General appearance: Present: A&O X 3, no acute distress, answers questions appropriately - Head Head exam: Present: atraumatic, normocephalic - Patient Status Disposition: Left Against Medical Advice Condition: Fair - Discharge Instructions Follow Up With: NONE,PCP [Primary Care Provider] -
== END 2017-10-17 21:00 | disposition left against medical advice (07) | DRG 418 ==
LOC: EMEROO 02:00 → 2ANU 02:00
PROVIDERS: ADMIT Internal Medicine; ATTEND Internal Medicine